=== PATIENT | male | born 1990 | race Caucasian/White ===

== ENCOUNTER 2017-06-27 19:32 | Emergency (ER) | payer OTHER ==
[2017-06-27] MEDS ORDERED: ONDANSETRON 4 MG/2 ML VIAL IVP STA (20:06)
[2017-06-27] MEDS ORDERED: MAG HYDROX/AL HYDROX/SIMETH 30 ML, HYOSCYAMINE ELIXIR 10 ML, CIMETIDINE HCL 300 MG PO STA ×3 (20:06)
[2017-06-27] MEDS ORDERED: SODIUM CHLORIDE 0.9% 1,000 ML IV STA (20:06)
--- NOTE | 2017-06-27 20:23 | ED ---
Abdominal Pain HPI - General Chief Complaint: Abdominal Pain Stated Complaint: Abd pain Time Seen by Provider: 06/27/17 19:59 Source: patient, RN notes reviewed Mode of arrival: ambulatory Limitations: no limitations - History of Present Illness Initial Comments: This a 26-year-old male presents emergency Department chief complaint of abdominal pain. Patient had increased abdominal pain over the last month. Patient states he does have associated nausea and heartburn. Patient denies any diarrhea or constipation. Patient does admit to alcohol abuse and drug abuse history. Patient denies any chest pain or shortness breath this time. Patient states pain is worse when he lays down and pain does radiate to his back. Patient denies any lower extremity swelling denies any skin changes including dryness or color. - Related Data Previous Rx's Medication Instructions Recorded Ondansetron Odt [Zofran Odt] 4 mg PO Q8HR PRN #10 tab 06/27/17 RX: Omeprazole [PriLOSEC] 40 mg PO DAILY #14 capsule. 06/27/17 Allergies Allergy/AdvReac Type Severity Reaction Status Date / Time No Known Allergies Allergy Verified 06/27/17 19:53 Review of Systems ROS Statement: Those systems with pertinent positive or pertinent negative responses have been documented in the HPI. ROS Other: All systems not noted in ROS Statement are negative. Past Medical History Past Medical History: No Reported History History of Any Multi-Drug Resistant Organisms: None Reported Past Surgical History: No Surgical Hx Reported Past Psychological History: No Psychological Hx Reported Smoking Status: Current every day smoker Past Alcohol Use History: Occasional Past Drug Use History: Marijuana, Prescription Drug Abuse General Exam Limitations: no limitations General appearance: alert, in no apparent distress Neck exam: Present: normal inspection. Absent: tenderness, meningismus, lymphadenopathy Respiratory exam: Present: normal lung sounds bilaterally. Absent: respiratory distress, wheezes, rales, rhonchi, stridor Cardiovascular Exam: Present: normal rhythm, tachycardia, normal heart sounds. Absent: systolic murmur, diastolic murmur, rubs, gallop, clicks GI/Abdominal exam: Present: soft, tenderness (Moderate abdominal tenderness), normal bowel sounds. Absent: distended, guarding, rebound, rigid Back exam: Absent: CVA tenderness (R), CVA tenderness (L) Skin exam: Present: warm, dry, intact, normal color. Absent: rash Course Vital Signs 06/27/17 06/27/17 06/27/17 19:51 20:26 21:12 Temperature 98.9 F Pulse Rate 126 H 118 H 77 Respiratory 20 18 18 Rate Blood Pressure 135/77 139/84 125/72 O2 Sat by Pulse 99 96 96 Oximetry 06/27/17 06/27/17 06/27/17 21:44 22:45 23:00 Temperature 98 F Pulse Rate 102 H 77 Respiratory 18 18 Rate Blood Pressure 126/75 117/71 O2 Sat by Pulse 96 96 Oximetry Medical Decision Making - Medical Decision Making 26-year-old male present emergency from for abdominal pain. Patient son have a thick gallbladder wall with no children to cholecystitis. Patient does have GERD and it mostly gastritis. Patient will be given omeprazole 40 mg and follow with on-call surgery for his gallbladder. - Lab Data Result diagrams: 06/27/17 20:24 06/27/17 20:24 Lab Results 06/27/17 06/27/17 06/27/17 Range/Units 20:24 20:24 20:24 WBC 12.3 H (3.8-10.6) k/uL RBC 5.11 (4.30-5.90) m/uL Hgb 16.6 (13.0-17.5) gm/dL Hct 46.3 (39.0-53.0) % MCV 90.7 (80.0-100.0) fL MCH 32.5 (25.0-35.0) pg MCHC 35.8 (31.0-37.0) g/dL RDW 14.3 (11.5-15.5) % Plt Count 233 (150-450) k/uL Neutrophils % 76 % Lymphocytes % 17 % Monocytes % 5 % Eosinophils % 1 % Basophils % 0 % Neutrophils # 9.3 H (1.3-7.7) k/uL Lymphocytes # 2.1 (1.0-4.8) k/uL Monocytes # 0.6 (0-1.0) k/uL Eosinophils # 0.2 (0-0.7) k/uL Basophils # 0.1 (0-0.2) k/uL PT (9.0-12.0) sec INR (<1.2) APTT (22.0-30.0) sec Sodium 139 (137-145) mmol/L Potassium 4.1 (3.5-5.1) mmol/L Chloride 108 H (98-107) mmol/L Carbon Dioxide 22 (22-30) mmol/L Anion Gap 9 mmol/L BUN 11 (9-20) mg/dL Creatinine 1.07 (0.66-1.25) mg/dL Est GFR (MDRD) Af Amer >60 (>60 ml/min/1.73 sqM) Est GFR (MDRD) Non-Af >60 (>60 ml/min/1.73 sqM) Glucose 104 H (74-99) mg/dL Plasma Lactic Acid Karthik 1.7 (0.7-2.0) mmol/L Calcium 8.7 (8.4-10.2) mg/dL Total Bilirubin 0.5 (0.2-1.3) mg/dL AST 44 (17-59) U/L ALT 77 H (21-72) U/L Alkaline Phosphatase 82 (38-126) U/L Total Protein 5.9 L (6.3-8.2) g/dL Albumin 3.6 (3.5-5.0) g/dL Amylase <30 L (30-110) U/L Lipase 30 (23-300) U/L Urine Color Urine Appearance (Clear) Urine pH (5.0-8.0) Ur Specific [place] (1.001-1.035) Urine Protein (Negative) Urine Glucose (UA) (Negative) Urine Ketones (Negative) Urine Blood (Negative) Urine Nitrite (Negative) Urine Bilirubin (Negative) Urine Urobilinogen (<2.0) mg/dL Ur Leukocyte Esterase (Negative) 06/27/17 06/27/17 Range/Units 20:24 20:24 WBC (3.8-10.6) k/uL RBC (4.30-5.90) m/uL Hgb (13.0-17.5) gm/dL Hct (39.0-53.0) % MCV (80.0-100.0) fL MCH (25.0-35.0) pg MCHC (31.0-37.0) g/dL RDW (11.5-15.5) % Plt Count (150-450) k/uL Neutrophils % % Lymphocytes % % Monocytes % % Eosinophils % % Basophils % % Neutrophils # (1.3-7.7) k/uL Lymphocytes # (1.0-4.8) k/uL Monocytes # (0-1.0) k/uL Eosinophils # (0-0.7) k/uL Basophils # (0-0.2) k/uL PT 10.8 (9.0-12.0) sec INR 1.1 (<1.2) APTT 22.2 (22.0-30.0) sec Sodium (137-145) mmol/L Potassium (3.5-5.1) mmol/L Chloride (98-107) mmol/L Carbon Dioxide (22-30) mmol/L Anion Gap mmol/L BUN (9-20) mg/dL Creatinine (0.66-1.25) mg/dL Est GFR (MDRD) Af Amer (>60 ml/min/1.73 sqM) Est GFR (MDRD) Non-Af (>60 ml/min/1.73 sqM) Glucose (74-99) mg/dL Plasma Lactic Acid Karthik (0.7-2.0) mmol/L Calcium (8.4-10.2) mg/dL Total Bilirubin (0.2-1.3) mg/dL AST (17-59) U/L ALT (21-72) U/L Alkaline Phosphatase (38-126) U/L Total Protein (6.3-8.2) g/dL Albumin (3.5-5.0) g/dL Amylase (30-110) U/L Lipase (23-300) U/L Urine Color Yellow Urine Appearance Clear (Clear) Urine pH 6.0 (5.0-8.0) Ur Specific [place] 1.015 (1.001-1.035) Urine Protein Trace H (Negative) Urine Glucose (UA) Negative (Negative) Urine Ketones Negative (Negative) Urine Blood Negative (Negative) Urine Nitrite Negative (Negative) Urine Bilirubin Negative (Negative) Urine Urobilinogen <2.0 (<2.0) mg/dL Ur Leukocyte Esterase Negative (Negative) Disposition Clinical Impression: Thickening of wall of gallbladder, GERD (gastroesophageal reflux disease), Abdominal pain Disposition: HOME SELF-CARE Condition: Stable Instructions: Abdominal Pain (ED) Additional Instructions: Please return to the Emergency Department if symptoms worsen or any other concerns. Prescriptions: RX: Omeprazole [PriLOSEC] 40 mg PO DAILY #14 capsule. Ondansetron Odt [Zofran Odt] 4 mg PO Q8HR PRN #10 tab PRN Reason: Nausea Referrals: Marlon Jain MD [Primary Care Provider] - 1-2 days Thu Voss MD [STAFF PHYSICIAN] - 1-2 days Time of Disposition: 23:17
[2017-06-27 20:27] VITALS: RESP 18
[2017-06-27 20:35] LABS: Appearance,Urine Clear (Clear); Basophils # (A) 0.1 k/uL (0-0.2); Basophils % (A) 0 %; Bilirubin,Urine Negative (Negative); CH 30.6; Eosinophils # (A) 0.2 k/uL (0-0.7); Eosinophils % (A) 1 %; Glucose,Urine (UA) Negative (Negative); HCT 46.3 % (39.0-53.0); HDW 2.83; HGB 16.6 gm/dL (13.0-17.5); Ketones,Urine Negative (Negative); Leukocyte Esterase,Urine Negative (Negative); Luc # (Auto) 0.16; Luc % (Auto) 1; Lymphocytes # (A) 2.1 k/uL (1.0-4.8); Lymphocytes % (A) 17 %; MCH 32.5 pg (25.0-35.0); MCHC 35.8 g/dL (31.0-37.0); MCV 90.7 fL (80.0-100.0); Mean Platelet Volume 7.9; Monocytes # (A) 0.6 k/uL (0-1.0); Monocytes % (A) 5 %; Neutrophils # (A) 9.3 k/uL (1.3-7.7); Neutrophils % (A) 76 %; Nitrite,Urine Negative (Negative); Protein,Urine Trace (Negative); RBC 5.11 m/uL (4.30-5.90); RDW 14.3 % (11.5-15.5); Specific Gravity,Urine 1.015 (1.001-1.035); UA Billing (MACRO vs. MICRO) CHEM; Urobilinogen,Urine <2.0 mg/dL (<2.0); WBC 12.3 k/uL (3.8-10.6); WBC (Perox) 11.95
--- NOTE | 2017-06-27 20:40 | XR ---
EXAMINATION TYPE: XR KUB DATE OF EXAM: 06/27/2017 COMPARISON: NONE HISTORY: Abdominal pain TECHNIQUE: 2 views FINDINGS: There is no sign of intestinal obstruction or pneumoperitoneum. Fecal pattern is normal. Th ere is no evidence of a mass. There are no pathologic calcifications over the kidneys. IMPRESSION: Nonacute abdomen.
[2017-06-27 20:46] LABS: ALT 77 U/L (21-72); AST 44 U/L (17-59); Alkaline Phosphatase 82 U/L (38-126); Amylase <30 U/L (30-110); Anion Gap 9 mmol/L; Blood Urea Nitrogen 11 mg/dL (9-20); Calcium 8.7 mg/dL (8.4-10.2); Carbon Dioxide 22 mmol/L (22-30); Chloride 108 mmol/L (98-107); Glucose 104 mg/dL (74-99); Non-African American GFR(MDRD) >60 (>60 ml/min/1.73 sqM); Potassium 4.1 mmol/L (3.5-5.1); Sodium 139 mmol/L (137-145); Total Bilirubin 0.5 mg/dL (0.2-1.3); Total Protein 5.9 g/dL (6.3-8.2)
[2017-06-27] MEDS ORDERED: RX INFO: IV CONTRAST WAS GIVEN 1 EACH MISC MISCELLANE PRN (20:51)
[2017-06-27] MEDS ORDERED: KETOROLAC 30 MG/ML 1 ML VIAL IVP STA (20:58)
--- NOTE | 2017-06-27 21:23 | CT ---
EXAMINATION TYPE: CT abdomen pelvis w con DATE OF EXAM: 06/27/2017 COMPARISON: NONE HISTORY: Generalized abdominal pain and nausea x [address] DLP: 493.40 mGycm Automated exposure control for dose reduction was used. TECHNIQUE: Helical acquisition of images was performed from the lung bases through the pelvis. CONTRAST: Performed without Oral Contrast and with IV Contrast, patient injected with 100 mL of Omnipaque 300. FINDINGS: There is a small right pleural effusion. There is mild subsegmental atelectasis at the lung bases. Th ere is small left pleural effusion. Liver shows no focal defect. There is significant gallbladder wall thickening with decreased attenuat ion. This measures 12 to 14 mm.. Bile ducts are not dilated. There is no evidence of a pancreatic mas s. Spleen appears normal. There is no adrenal mass. Kidneys show satisfactory contrast opacification. There is no hydronephrosi s. There is no retroperitoneal adenopathy. There is no ascites. Bladder distends smoothly. There is no sign of a pelvic mass. I see no intestina l wall thickening. There are no dilated loops. The appendix appears normal. I see no bony destructive process. IMPRESSION: Abnormal appearing gallbladder that probably is due to edematous thick wall and cholecyst itis. Ultrasound would be helpful for confirmation. Normal appendix. Bilateral pleural effusions and basilar interstitial infiltrates and atelectasis.
[2017-06-27] MEDS ORDERED: HYDROmorphone 1 MG/ML 1 ML SYRINGE IVP STA (21:39)
[2017-06-27 22:46] VITALS: BP 117/71; PULSE 77
[2017-06-27 23:01] VITALS: TEMP 98
[2017-06-27 23:05] LABS: INR 1.1 (<1.2); Partial Thromboplastin Time 22.2 sec (22.0-30.0); Prothrombin Time 10.8 sec (9.0-12.0)
--- NOTE | 2017-06-27 23:07 | US ---
INDICATION: Right upper quadrant abdominal pain TECHNIQUE: Real-time imaging of the right upper quadrant of the abdomen is performed in transverse and longitudinal projections. COMPARISON: CT abdomen and pelvis 06/27/17 FINDINGS: The liver is enlarged measuring 19.9 cm. There is no biliary dilatation. No focal hepatic lesion is visualized. Liver parenchyma is mildly echogenic. There is marked gallbladder wall thickening measuring 10 mm. No cholelithiasis or gallbladder sludge is demonstrated. Sonographic Dma[place] sign is negative. Common bile duct is normal in caliber measuring 3.9 mm. The right kidney is normal in size measuring 10.5 cm in length. There is no hydronephrosis. No ascites is demonstrated. IMPRESSION: 1. Hepatomegaly with echogenic parenchyma, a nonspecific finding which may represent hepatocellular disease such as hepatitis or steatosis. 2. Pronounced gallbladder wall thickening without sonographic findings of acute cholecystitis. Gallbladder wall thickening may be secondary to hepatocellular, cardiac, or other disease process.
== END 2017-06-27 23:33 | disposition home or self-care (01) ==
LOC: EC 19:32
DX: K21.9 Gastro-esophageal reflux disease without esophagitis (principal); K82.8 Other specified diseases of gallbladder; R00.0 Tachycardia, unspecified; R11.0 Nausea; M54.9 Dorsalgia, unspecified; F17.200 Nicotine dependence, unspecified, uncomplicated; Z87.898 Personal history of other specified conditions
CPT/HCPCS: 36415; 80053; 82150; 83605; 83690; 85025; 85610; 85730; 81003; 74000; 76705; 74177; 99284; 96374; 96375 ×2; 96361; J2405; J1885; J1170; Q9967

== ENCOUNTER 2017-06-28 21:04 | Inpatient (IN) | payer OTHER ==
[2017-06-28] MEDS ORDERED: SODIUM CHLORIDE 0.9% 1,000 ML IV STA (21:09)
[2017-06-28] MEDS ORDERED: ONDANSETRON 4 MG/2 ML VIAL IVP STA (21:09)
[2017-06-28] MEDS ORDERED: HYDROmorphone 1 MG/ML 1 ML SYRINGE IVP STA (21:09)
[2017-06-28] MEDS ORDERED: SODIUM CHLORIDE 0.9% 500 ML IV STA (21:09)
--- NOTE | 2017-06-28 22:04 | ED ---
Abdominal Pain HPI - General Chief Complaint: Abdominal Pain Stated Complaint: Abd pain Time Seen by Provider: 06/28/17 21:09 Source: patient, RN notes reviewed Mode of arrival: ambulatory Limitations: no limitations - History of Present Illness Initial Comments: 26-year-old male presents emergency department for recheck abdominal pain. Patient states he was seen in emergency from last night was told that his gallbladder injury causing some issues. Patient states that he's had worsening nausea and abdominal discomfort today. He states that since right upper quadrant and mid abdomen. Patient denies any vomiting no diarrhea no constipation. Denies any fevers or chills. Denies any chest pain or shortness of breath. States nothing seems to make the pain feel better or worse at this time. - Related Data Previous Rx's Medication Instructions Recorded Omeprazole [PriLOSEC] 40 mg PO DAILY #14 capsule. 06/27/17 Ondansetron Odt [Zofran Odt] 4 mg PO Q8HR PRN #10 tab 06/27/17 Allergies Allergy/AdvReac Type Severity Reaction Status Date / Time No Known Allergies Allergy Verified 06/28/17 21:22 Review of Systems ROS Statement: Those systems with pertinent positive or pertinent negative responses have been documented in the HPI. ROS Other: All systems not noted in ROS Statement are negative. Past Medical History Past Medical History: No Reported History History of Any Multi-Drug Resistant Organisms: None Reported Past Surgical History: No Surgical Hx Reported Past Psychological History: No Psychological Hx Reported Smoking Status: Current every day smoker Past Alcohol Use History: Occasional Past Drug Use History: Marijuana, Prescription Drug Abuse General Exam Limitations: no limitations General appearance: alert, in no apparent distress Head exam: Present: atraumatic, normocephalic, normal inspection ENT exam: Present: normal oropharynx Neck exam: Present: normal inspection. Absent: tenderness, meningismus, lymphadenopathy Respiratory exam: Present: normal lung sounds bilaterally. Absent: respiratory distress, wheezes, rales, rhonchi, stridor Cardiovascular Exam: Present: normal rhythm, tachycardia, normal heart sounds. Absent: systolic murmur, diastolic murmur, rubs, gallop, clicks GI/Abdominal exam: Present: soft, tenderness (Moderate right upper quadrant tenderness, mid abdomen tenderness), normal bowel sounds. Absent: distended, guarding, rebound, rigid Back exam: Absent: CVA tenderness (R), CVA tenderness (L) Skin exam: Present: warm, dry, intact, normal color. Absent: rash Course Vital Signs 06/28/17 06/28/17 21:06 22:23 Temperature 97 F L 97.6 F Pulse Rate 122 H 110 H Respiratory 20 18 Rate Blood Pressure 122/79 129/73 O2 Sat by Pulse 98 99 Oximetry Medical Decision Making - Lab Data Result diagrams: 06/28/17 21:34 06/28/17 21:34 Lab Results 06/28/17 06/28/17 06/28/17 Range/Units 21:34 21:34 21:34 WBC 11.8 H (3.8-10.6) k/uL RBC 5.46 (4.30-5.90) m/uL Hgb 17.5 (13.0-17.5) gm/dL Hct 51.3 (39.0-53.0) % MCV 93.8 (80.0-100.0) fL MCH 32.0 (25.0-35.0) pg MCHC 34.1 (31.0-37.0) g/dL RDW 14.5 (11.5-15.5) % Plt Count 238 (150-450) k/uL Neutrophils % 65 % Lymphocytes % 25 % Monocytes % 7 % Eosinophils % 1 % Basophils % 1 % Neutrophils # 7.7 (1.3-7.7) k/uL Lymphocytes # 2.9 (1.0-4.8) k/uL Monocytes # 0.8 (0-1.0) k/uL Eosinophils # 0.2 (0-0.7) k/uL Basophils # 0.1 (0-0.2) k/uL Sodium 135 L (137-145) mmol/L Potassium 4.7 (3.5-5.1) mmol/L Chloride 107 (98-107) mmol/L Carbon Dioxide 19 L (22-30) mmol/L Anion Gap 9 mmol/L BUN 13 (9-20) mg/dL Creatinine 1.20 (0.66-1.25) mg/dL Est GFR (MDRD) Af Amer >60 (>60 ml/min/1.73 sqM) Est GFR (MDRD) Non-Af >60 (>60 ml/min/1.73 sqM) Glucose 125 H (74-99) mg/dL Plasma Lactic Acid Karthik 2.4 H* (0.7-2.0) mmol/L Calcium 8.8 (8.4-10.2) mg/dL Magnesium 1.9 (1.6-2.3) mg/dL Total Bilirubin 1.8 H (0.2-1.3) mg/dL AST 258 H (17-59) U/L ALT 230 H (21-72) U/L Alkaline Phosphatase 86 (38-126) U/L Total Protein 5.9 L (6.3-8.2) g/dL Albumin 3.5 (3.5-5.0) g/dL Amylase <30 L (30-110) U/L Lipase 23 (23-300) U/L Urine Color Urine Appearance (Clear) Urine pH (5.0-8.0) Ur Specific [place] (1.001-1.035) Urine Protein (Negative) Urine Glucose (UA) (Negative) Urine Ketones (Negative) Urine Blood (Negative) Urine Nitrite (Negative) Urine Bilirubin (Negative) Urine Urobilinogen (<2.0) mg/dL Ur Leukocyte Esterase (Negative) Urine RBC (0-5) /hpf Urine WBC (0-5) /hpf Hyaline Casts (0-2) /lpf Urine Mucus (None) /hpf 06/28/17 Range/Units 21:34 WBC (3.8-10.6) k/uL RBC (4.30-5.90) m/uL Hgb (13.0-17.5) gm/dL Hct (39.0-53.0) % MCV (80.0-100.0) fL MCH (25.0-35.0) pg MCHC (31.0-37.0) g/dL RDW (11.5-15.5) % Plt Count (150-450) k/uL Neutrophils % % Lymphocytes % % Monocytes % % Eosinophils % % Basophils % % Neutrophils # (1.3-7.7) k/uL Lymphocytes # (1.0-4.8) k/uL Monocytes # (0-1.0) k/uL Eosinophils # (0-0.7) k/uL Basophils # (0-0.2) k/uL Sodium (137-145) mmol/L Potassium (3.5-5.1) mmol/L Chloride (98-107) mmol/L Carbon Dioxide (22-30) mmol/L Anion Gap mmol/L BUN (9-20) mg/dL Creatinine (0.66-1.25) mg/dL Est GFR (MDRD) Af Amer (>60 ml/min/1.73 sqM) Est GFR (MDRD) Non-Af (>60 ml/min/1.73 sqM) Glucose (74-99) mg/dL Plasma Lactic Acid Karthik (0.7-2.0) mmol/L Calcium (8.4-10.2) mg/dL Magnesium (1.6-2.3) mg/dL Total Bilirubin (0.2-1.3) mg/dL AST (17-59) U/L ALT (21-72) U/L Alkaline Phosphatase (38-126) U/L Total Protein (6.3-8.2) g/dL Albumin (3.5-5.0) g/dL Amylase (30-110) U/L Lipase (23-300) U/L Urine Color Yellow Urine Appearance Clear (Clear) Urine pH 6.0 (5.0-8.0) Ur Specific [place] 1.022 (1.001-1.035) Urine Protein 1+ H (Negative) Urine Glucose (UA) Negative (Negative) Urine Ketones Negative (Negative) Urine Blood Negative (Negative) Urine Nitrite Negative (Negative) Urine Bilirubin 1+ H (Negative) Urine Urobilinogen 3.0 (<2.0) mg/dL Ur Leukocyte Esterase Negative (Negative) Urine RBC 1 (0-5) /hpf Urine WBC 1 (0-5) /hpf Hyaline Casts 47 H (0-2) /lpf Urine Mucus Rare H (None) /hpf Disposition Clinical Impression: Acute cholecystitis Disposition: ADMITTED IP TO THIS HOSP Condition: Fair Referrals: Marlon Jain MD [Primary Care Provider] - 1-2 days
[2017-06-28 22:05] LABS: Basophils # (A) 0.1 k/uL (0-0.2); Basophils % (A) 1 %; CH 30.8; Eosinophils # (A) 0.2 k/uL (0-0.7); Eosinophils % (A) 1 %; HCT 51.3 % (39.0-53.0); HDW 2.87; HGB 17.5 gm/dL (13.0-17.5); Luc % (Auto) 2; Lymphocytes # (A) 2.9 k/uL (1.0-4.8); Lymphocytes % (A) 25 %; MCHC 34.1 g/dL (31.0-37.0); MCV 93.8 fL (80.0-100.0); Mean Platelet Volume 8.3; Monocytes # (A) 0.8 k/uL (0-1.0); Monocytes % (A) 7 %; Neutrophils # (A) 7.7 k/uL (1.3-7.7); Neutrophils % (A) 65 %; RBC 5.46 m/uL (4.30-5.90); RDW 14.5 % (11.5-15.5); WBC 11.8 k/uL (3.8-10.6); WBC (Perox) 11.04
[2017-06-28 22:11] LABS: ALT 230 U/L (21-72); AST 258 U/L (17-59); Alkaline Phosphatase 86 U/L (38-126); Amylase <30 U/L (30-110); Anion Gap 9 mmol/L; Appearance,Urine Clear (Clear); Bilirubin,Urine 1+ (Negative); Blood Urea Nitrogen 13 mg/dL (9-20); Calcium 8.8 mg/dL (8.4-10.2); Carbon Dioxide 19 mmol/L (22-30); Chloride 107 mmol/L (98-107); Glucose 125 mg/dL (74-99); Glucose,Urine (UA) Negative (Negative); Ketones,Urine Negative (Negative); Leukocyte Esterase,Urine Negative (Negative); Magnesium 1.9 mg/dL (1.6-2.3); Mucus,Urine Rare /hpf; Nitrite,Urine Negative (Negative); Non-African American GFR(MDRD) >60 (>60 ml/min/1.73 sqM); Particle Count 7010; Potassium 4.7 mmol/L (3.5-5.1); Protein,Urine 1+ (Negative); RBC,Urine 1 /hpf (0-5); Sodium 135 mmol/L (137-145); Specific Gravity,Urine 1.022 (1.001-1.035); Total Bilirubin 1.8 mg/dL (0.2-1.3); Total Protein 5.9 g/dL (6.3-8.2); UA Billing (MACRO vs. MICRO) MICRO; WBC,Urine 1 /hpf (0-5)
[2017-06-28] MEDS ORDERED: PIPERACILLIN-TAZOBACTAM 3.375 GM in DEXTROSE/WATER 1 50ML.BAG IVPB STA (22:29)
[2017-06-28] MEDS ORDERED: SODIUM CHLORIDE 0.9% 1,000 ML IV ONE (22:29)
[2017-06-28] MEDS ORDERED: NALOXONE 0.4 MG/ML 1 ML VIAL IV PRN (22:31)
[2017-06-28] MEDS ORDERED: ONDANSETRON 4 MG/2 ML VIAL IVP PRN (22:31)
[2017-06-29 00:02] VITALS: BMI 26.2
[2017-06-29] MEDS: HYDROmorphone 1 MG/ML 1 ML SYRINGE IV PRN ×5 (00:20→22:27)
[2017-06-29 02:37] LABS: Hepatitis B Surface Ag Index 0.05
[2017-06-29 02:43] LABS: Hepatitis B Core IgM Index 0.03
[2017-06-29 02:55] LABS: Hepatitis C Virus IgG Ab Negative (Negative); Hepatitis C Virus IgG Index 0.02
[2017-06-29] MEDS: PIPERACILLIN-TAZOBACTAM 3.375 GM in DEXTROSE/WATER 1 50ML.BAG IVPB SCH ×2 (03:12→08:46)
[2017-06-29 08:20] LABS: Basophils # (A) 0.1 k/uL (0-0.2); Basophils % (A) 1 %; CH 31.7; CHCM 33.5; Eosinophils # (A) 0.1 k/uL (0-0.7); Eosinophils % (A) 1 %; HCT 46.8 % (39.0-53.0); HDW 2.89; HGB 15.4 gm/dL (13.0-17.5); Luc # (Auto) 0.18; Luc % (Auto) 2; Lymphocytes # (A) 1.9 k/uL (1.0-4.8); Lymphocytes % (A) 18 %; MCH 31.4 pg (25.0-35.0); MCV 95.4 fL (80.0-100.0); Mean Platelet Volume 8.7; Monocytes # (A) 1.1 k/uL (0-1.0); Monocytes % (A) 11 %; Neutrophils # (A) 6.8 k/uL (1.3-7.7); Neutrophils % (A) 67 %; RBC 4.91 m/uL (4.30-5.90); WBC 10.2 k/uL (3.8-10.6); WBC (Perox) 10.49
[2017-06-29 08:28] LABS: ALT 805 U/L (21-72); Alkaline Phosphatase 77 U/L (38-126); Amylase <30 U/L (30-110); Anion Gap 6 mmol/L; Bilirubin, Delta 0.4 mg/dL (0.0-0.2); Blood Urea Nitrogen 13 mg/dL (9-20); Calcium 8.2 mg/dL (8.4-10.2); Carbon Dioxide 22 mmol/L (22-30); Chloride 109 mmol/L (98-107); GGT 38 U/L (15-73); Glucose 82 mg/dL (74-99); Non-African American GFR(MDRD) >60 (>60 ml/min/1.73 sqM); Potassium 4.2 mmol/L (3.5-5.1); Sodium 137 mmol/L (137-145); Total Bilirubin 1.4 mg/dL (0.2-1.3); Total Protein 5.2 g/dL (6.3-8.2)
[2017-06-29 08:34] LABS: AST 1131 U/L (17-59); INR 1.3 (<1.2); Prothrombin Time 12.7 sec (9.0-12.0)
[2017-06-29 09:02] LABS: Manual Review Performed
[2017-06-29 09:03] LABS: RBC Morphology Normal
--- NOTE | 2017-06-29 09:36 | P.GSCN ---
<Berna Chapin M - Last Filed: 06/29/17 09:13> History of Present Illness Consult date: 06/29/17 Reason for Consult: Abdominal pain History of present illness: 26-year-old being seen at the request of the attending for surgical eval was chief complaint right upper quadrant abdominal pain. Patient stated that he was seen in the emergency room on June 27 was told that his gallbladder was causing some issues. Patient stated that over the last 6 weeks he has been experiencing intermittent episodes of nausea with right upper quadrant pain. Seem to be aggravated if he drink alcohol. Additionally patient stated if he bent over it seemed to increase the pain. Patient denied any fever chills. Denied chest pain denying shortness of breath. Patient states he did not note anything seemed to make it better. Patient states was given a prescription on June 27 for Zofran and Prilosec which patient states did not offer any relief. Patient gives no significant past surgical history patient does state that he drinks beer a couple times a week. Smokes marijuana and has a history of prescription drug abuse Vicodin.. Patient gives a history of mother had colitis father has a history of Crohn's disease. Patient stated several years ago was working in [facility] when to the emergency room was told that he needed to follow-up regarding possible Crohn's disease. Patient has poor recall of the event. Patient states he's never been seen by a GI service has never been given the diagnosis of Crohn's disease. Additionally patient is a history of being hospitalized on 2014 to the mental health unit for suicidal ideation anxiety depressive disorder On June 27 patient did have a CAT scan of the abdomen pelvis with contrast in summary reviewing the report it did show significant gallbladder wall thickening no evidence of a pancreatic mass bile ducts not dilated no ascites.With a normal appendix the white count on admission 11.8 hemoglobin 17.5 INR 1.3 The AST this morning elevated at 1131 on admission 258. Total bili 1. 2 ALT up 805 lipase 23 hepatitis panel negative. Urinalysis negative KUB negative ultrasound of the abdomen to evaluate the right upper quadrant pain done on the pronounced gallbladder wall thickening without findings of an acute cholecystitis no sludge demonstrated Review of Systems Essentially unremarkable except as mentioned in the present illness Past Medical History Past Medical History: No Reported History History of Any Multi-Drug Resistant Organisms: None Reported Past Surgical History: No Surgical Hx Reported Past Psychological History: No Psychological Hx Reported Smoking Status: Current every day smoker Past Alcohol Use History: Occasional Past Drug Use History: Marijuana, Prescription Drug Abuse Additional Drug Use History / Comment(s): Opiates and Benzo's Medications and Allergies Home Medications Medication Instructions Recorded Confirmed Type Omeprazole [PriLOSEC] 40 mg PO DAILY #14 capsule. 06/27/17 06/28/17 Rx Ondansetron Odt [Zofran Odt] 4 mg PO Q8HR PRN #10 tab 06/27/17 06/28/17 Rx Allergies Allergy/AdvReac Type Severity Reaction Status Date / Time No Known Allergies Allergy Verified 06/28/17 21:22 Surgical - Exam Vital Signs Temp Pulse Resp BP Pulse Ox 97 F L 122 H 20 122/79 98 06/28/17 21:06 06/28/17 21:06 06/28/17 21:06 06/28/17 21:06 06/28/17 21:06 GENERAL APPEARANCE: 26-year-old male patient is alert, oriented, in no acute distress. States the pain medication effective for pain control VITAL SIGNS: Reviewed HEENT: Head is normocephalic and atraumatic. Pupils are equal and reactive. The nares are patent. Oropharynx is clear without lesions. NECK: Supple without lymphadenopathy. Traches midline. HEART: S1, S2. Regular rate and rhythm. Denying chest pain no murmur LUNGS: No crackles or wheezes are heard. Good air movement bilaterally on room air ABDOMEN: Soft, slight tenderness right upper quadrant no reports of nausea vomiting nondistended with good bowel sounds. No peritoneal signs. No palpable organomegaly or masses. EXTREMITIES: Normal skin color and turgor. No cyanosis, rash, ulceration, clubbing or edema. Radial pedal pulses are 2/4 bilaterally. NEUROLOGICAL: No focal deficits. Strength and sensation are grossly intact. Results - Labs 06/29/17 08:08 06/29/17 08:08 Abnormal Lab Results - Last 24 Hours (Table) 06/28/17 06/28/17 06/28/17 Range/Units 21:34 21:34 21:34 WBC 11.8 H (3.8-10.6) k/uL Monocytes # (0-1.0) k/uL PT (9.0-12.0) sec INR (<1.2) Sodium 135 L (137-145) mmol/L Chloride (98-107) mmol/L Carbon Dioxide 19 L (22-30) mmol/L Creatinine (0.66-1.25) mg/dL Glucose 125 H (74-99) mg/dL Plasma Lactic Acid Karthik 2.4 H* (0.7-2.0) mmol/L Calcium (8.4-10.2) mg/dL Total Bilirubin 1.8 H (0.2-1.3) mg/dL Delta Bilirubin (0.0-0.2) mg/dL AST 258 H (17-59) U/L ALT 230 H (21-72) U/L Total Protein 5.9 L (6.3-8.2) g/dL Albumin (3.5-5.0) g/dL Amylase <30 L (30-110) U/L Urine Protein (Negative) Urine Bilirubin (Negative) Hyaline Casts (0-2) /lpf Urine Mucus (None) /hpf 06/28/17 06/29/17 06/29/17 Range/Units 21:34 08:08 08:08 WBC (3.8-10.6) k/uL Monocytes # 1.1 H (0-1.0) k/uL PT (9.0-12.0) sec INR (<1.2) Sodium (137-145) mmol/L Chloride 109 H (98-107) mmol/L Carbon Dioxide (22-30) mmol/L Creatinine 1.34 H (0.66-1.25) mg/dL Glucose (74-99) mg/dL Plasma Lactic Acid Karthik (0.7-2.0) mmol/L Calcium 8.2 L (8.4-10.2) mg/dL Total Bilirubin 1.4 H (0.2-1.3) mg/dL Delta Bilirubin 0.4 H (0.0-0.2) mg/dL AST 1131 H (17-59) U/L ALT 805 H (21-72) U/L Total Protein 5.2 L (6.3-8.2) g/dL Albumin 3.0 L (3.5-5.0) g/dL Amylase <30 L (30-110) U/L Urine Protein 1+ H (Negative) Urine Bilirubin 1+ H (Negative) Hyaline Casts 47 H (0-2) /lpf Urine Mucus Rare H (None) /hpf 06/29/17 Range/Units 08:08 WBC (3.8-10.6) k/uL Monocytes # (0-1.0) k/uL PT 12.7 H (9.0-12.0) sec INR 1.3 H (<1.2) Sodium (137-145) mmol/L Chloride (98-107) mmol/L Carbon Dioxide (22-30) mmol/L Creatinine (0.66-1.25) mg/dL Glucose (74-99) mg/dL Plasma Lactic Acid Karthik (0.7-2.0) mmol/L Calcium (8.4-10.2) mg/dL Total Bilirubin (0.2-1.3) mg/dL Delta Bilirubin (0.0-0.2) mg/dL AST (17-59) U/L ALT (21-72) U/L Total Protein (6.3-8.2) g/dL Albumin (3.5-5.0) g/dL Amylase (30-110) U/L Urine Protein (Negative) Urine Bilirubin (Negative) Hyaline Casts (0-2) /lpf Urine Mucus (None) /hpf Diabetes panel 06/28/17 06/29/17 Range/Units 21:34 08:08 Sodium 135 L 137 (137-145) mmol/L Potassium 4.7 4.2 (3.5-5.1) mmol/L Chloride 107 109 H (98-107) mmol/L Carbon Dioxide 19 L 22 (22-30) mmol/L BUN 13 13 (9-20) mg/dL Creatinine 1.20 1.34 H (0.66-1.25) mg/dL Glucose 125 H 82 (74-99) mg/dL Calcium 8.8 8.2 L (8.4-10.2) mg/dL AST 258 H 1131 H (17-59) U/L ALT 230 H 805 H (21-72) U/L Alkaline Phosphatase 86 77 (38-126) U/L Total Protein 5.9 L 5.2 L (6.3-8.2) g/dL Albumin 3.5 3.0 L (3.5-5.0) g/dL Calcium panel 06/28/17 06/29/17 Range/Units 21:34 08:08 Calcium 8.8 8.2 L (8.4-10.2) mg/dL Albumin 3.5 3.0 L (3.5-5.0) g/dL Pituitary panel 06/28/17 06/29/17 Range/Units 21:34 08:08 Sodium 135 L 137 (137-145) mmol/L Potassium 4.7 4.2 (3.5-5.1) mmol/L Chloride 107 109 H (98-107) mmol/L Carbon Dioxide 19 L 22 (22-30) mmol/L BUN 13 13 (9-20) mg/dL Creatinine 1.20 1.34 H (0.66-1.25) mg/dL Glucose 125 H 82 (74-99) mg/dL Calcium 8.8 8.2 L (8.4-10.2) mg/dL Adrenal panel 06/28/17 06/29/17 Range/Units 21:34 08:08 Sodium 135 L 137 (137-145) mmol/L Potassium 4.7 4.2 (3.5-5.1) mmol/L Chloride 107 109 H (98-107) mmol/L Carbon Dioxide 19 L 22 (22-30) mmol/L BUN 13 13 (9-20) mg/dL Creatinine 1.20 1.34 H (0.66-1.25) mg/dL Glucose 125 H 82 (74-99) mg/dL Calcium 8.8 8.2 L (8.4-10.2) mg/dL Total Bilirubin 1.8 H 1.4 H (0.2-1.3) mg/dL AST 258 H 1131 H (17-59) U/L ALT 230 H 805 H (21-72) U/L Alkaline Phosphatase 86 77 (38-126) U/L Total Protein 5.9 L 5.2 L (6.3-8.2) g/dL Albumin 3.5 3.0 L (3.5-5.0) g/dL Assessment and Plan Plan: Impression Present on admission right upper quadrant pain with nausea vomiting with ultrasound of the abdomen showing hepatomegaly Present on admission elevated ast,alt unclear etiology Self-report of daily alcohol use 6 beers a day Use of marijuana daily History of a a prescription drug abuse History depressive anxiety disorder nonspecified Plan We'll consult GI service to evaluate the elevated AST and ALT await recommendations Continue IV fluid for hydration Pain control Repeat labs in the morning DVT and GI prophylaxis Further surgical recommendations after Dr. Voss evaluates patient and lab findings Keep nothing by mouth until surgical eval complete Thank you for allowing us to participate in the surgical management of your patient further surgical recommendations are pending clinical course The above impression and plan of care have been discussed and directed by signing physician. Berna Chapin nurse practitioner acting as scribe for signing physician. <Thu Voss - Last Filed: 06/29/17 12:38> Surgical - Exam Vital Signs Temp Pulse Resp BP Pulse Ox 97 F L 122 H 20 122/79 98 06/28/17 21:06 06/28/17 21:06 06/28/17 21:06 06/28/17 21:06 06/28/17 21:06 Results - Labs 06/29/17 08:08 06/29/17 08:08 Abnormal Lab Results - Last 24 Hours (Table) 06/28/17 06/28/17 06/28/17 Range/Units 21:34 21:34 21:34 WBC 11.8 H (3.8-10.6) k/uL Monocytes # (0-1.0) k/uL PT (9.0-12.0) sec INR (<1.2) Sodium 135 L (137-145) mmol/L Chloride (98-107) mmol/L Carbon Dioxide 19 L (22-30) mmol/L Creatinine (0.66-1.25) mg/dL Glucose 125 H (74-99) mg/dL Plasma Lactic Acid Karthik 2.4 H* (0.7-2.0) mmol/L Calcium (8.4-10.2) mg/dL Total Bilirubin 1.8 H (0.2-1.3) mg/dL Delta Bilirubin (0.0-0.2) mg/dL AST 258 H (17-59) U/L ALT 230 H (21-72) U/L Total Protein 5.9 L (6.3-8.2) g/dL Albumin (3.5-5.0) g/dL Amylase <30 L (30-110) U/L Urine Protein (Negative) Urine Bilirubin (Negative) Hyaline Casts (0-2) /lpf Urine Mucus (None) /hpf 06/28/17 06/29/17 06/29/17 Range/Units 21:34 08:08 08:08 WBC (3.8-10.6) k/uL Monocytes # 1.1 H (0-1.0) k/uL PT (9.0-12.0) sec INR (<1.2) Sodium (137-145) mmol/L Chloride 109 H (98-107) mmol/L Carbon Dioxide (22-30) mmol/L Creatinine 1.34 H (0.66-1.25) mg/dL Glucose (74-99) mg/dL Plasma Lactic Acid Karthik (0.7-2.0) mmol/L Calcium 8.2 L (8.4-10.2) mg/dL Total Bilirubin 1.4 H (0.2-1.3) mg/dL Delta Bilirubin 0.4 H (0.0-0.2) mg/dL AST 1131 H (17-59) U/L ALT 805 H (21-72) U/L Total Protein 5.2 L (6.3-8.2) g/dL Albumin 3.0 L (3.5-5.0) g/dL Amylase <30 L (30-110) U/L Urine Protein 1+ H (Negative) Urine Bilirubin 1+ H (Negative) Hyaline Casts 47 H (0-2) /lpf Urine Mucus Rare H (None) /hpf 06/29/17 Range/Units 08:08 WBC (3.8-10.6) k/uL Monocytes # (0-1.0) k/uL PT 12.7 H (9.0-12.0) sec INR 1.3 H (<1.2) Sodium (137-145) mmol/L Chloride (98-107) mmol/L Carbon Dioxide (22-30) mmol/L Creatinine (0.66-1.25) mg/dL Glucose (74-99) mg/dL Plasma Lactic Acid Karthik (0.7-2.0) mmol/L Calcium (8.4-10.2) mg/dL Total Bilirubin (0.2-1.3) mg/dL Delta Bilirubin (0.0-0.2) mg/dL AST (17-59) U/L ALT (21-72) U/L Total Protein (6.3-8.2) g/dL Albumin (3.5-5.0) g/dL Amylase (30-110) U/L Urine Protein (Negative) Urine Bilirubin (Negative) Hyaline Casts (0-2) /lpf Urine Mucus (None) /hpf Diabetes panel 06/28/17 06/29/17 Range/Units 21:34 08:08 Sodium 135 L 137 (137-145) mmol/L Potassium 4.7 4.2 (3.5-5.1) mmol/L Chloride 107 109 H (98-107) mmol/L Carbon Dioxide 19 L 22 (22-30) mmol/L BUN 13 13 (9-20) mg/dL Creatinine 1.20 1.34 H (0.66-1.25) mg/dL Glucose 125 H 82 (74-99) mg/dL Calcium 8.8 8.2 L (8.4-10.2) mg/dL AST 258 H 1131 H (17-59) U/L ALT 230 H 805 H (21-72) U/L Alkaline Phosphatase 86 77 (38-126) U/L Total Protein 5.9 L 5.2 L (6.3-8.2) g/dL Albumin 3.5 3.0 L (3.5-5.0) g/dL Calcium panel 06/28/17 06/29/17 Range/Units 21:34 08:08 Calcium 8.8 8.2 L (8.4-10.2) mg/dL Albumin 3.5 3.0 L (3.5-5.0) g/dL Pituitary panel 06/28/17 06/29/17 Range/Units 21:34 08:08 Sodium 135 L 137 (137-145) mmol/L Potassium 4.7 4.2 (3.5-5.1) mmol/L Chloride 107 109 H (98-107) mmol/L Carbon Dioxide 19 L 22 (22-30) mmol/L BUN 13 13 (9-20) mg/dL Creatinine 1.20 1.34 H (0.66-1.25) mg/dL Glucose 125 H 82 (74-99) mg/dL Calcium 8.8 8.2 L (8.4-10.2) mg/dL Adrenal panel 06/28/17 06/29/17 Range/Units 21:34 08:08 Sodium 135 L 137 (137-145) mmol/L Potassium 4.7 4.2 (3.5-5.1) mmol/L Chloride 107 109 H (98-107) mmol/L Carbon Dioxide 19 L 22 (22-30) mmol/L BUN 13 13 (9-20) mg/dL Creatinine 1.20 1.34 H (0.66-1.25) mg/dL Glucose 125 H 82 (74-99) mg/dL Calcium 8.8 8.2 L (8.4-10.2) mg/dL Total Bilirubin 1.8 H 1.4 H (0.2-1.3) mg/dL AST 258 H 1131 H (17-59) U/L ALT 230 H 805 H (21-72) U/L Alkaline Phosphatase 86 77 (38-126) U/L Total Protein 5.9 L 5.2 L (6.3-8.2) g/dL Albumin 3.5 3.0 L (3.5-5.0) g/dL Assessment and Plan Plan: Patient examined. Films and labs reviewed. He has acalculous cholecystitis. He drinks alcohol 6 beers daily until a week ago. Elevated LFTs could be alcohol related. Discussed with Dr. Vera. Plan for lap dm possible open. Plan to observe LFT trends
[2017-06-29] MEDS: PANTOPRAZOLE 40 MG/10 ML VIAL IVP SCH ×2 (11:58→20:57)
[2017-06-29] MEDS ORDERED: IV FLUID CONTINUATION 1,000 ML IV ONE ×2 (12:25)
[2017-06-29] MEDS ORDERED: LIDOCAINE 2%-EPI 1:100,000 20 ML VIAL SQ ONE (13:09)
[2017-06-29] MEDS ORDERED: PHENYLEPHRINE-0.9% NACL SYG 1 MG/10 ML SYRINGE ONE (13:13)
[2017-06-29] MEDS ORDERED: PROPOFOL 10 MG/ML 20 ML VIAL IV ONE (13:13)
[2017-06-29] MEDS ORDERED: MORPHINE SULFATE 10 MG/ML SYRINGE ONE (13:13)
[2017-06-29] MEDS ORDERED: LIDOCAINE 1% INJ 10MG/ML (20 ML MDV) ONE (13:13)
[2017-06-29] MEDS ORDERED: ROCURONIUM BROMIDE 10 MG/ML 10 ML VIAL IV ONE (13:13)
[2017-06-29] MEDS ORDERED: NEOSTIGMINE 1 MG/ML 10 ML VIAL ONE (13:13)
[2017-06-29] MEDS ORDERED: fentaNYL (PF) 50 MCG/ML 2 ML AMP ONE (13:13)
[2017-06-29] MEDS ORDERED: ALBUTEROL INHALER 60 PUFF/8 GM INHALER INHALATION ONE (13:13)
[2017-06-29] MEDS ORDERED: GLYCOPYRROLATE 0.2 MG/ML 2 ML VIAL ONE (13:13)
[2017-06-29] MEDS ORDERED: MIDAZOLAM 2 MG/2 ML VIAL ONE (13:13)
[2017-06-29] MEDS ORDERED: SUCCINYLCHOLINE CHLORIDE 100 MG/5 ML SYR IV ONE (13:13)
[2017-06-29] MEDS ORDERED: SODIUM CHLORIDE 0.9% 1,000 ML IV ONE ×2 (13:43→14:17)
--- NOTE | 2017-06-29 14:14 | P.OP ---
Date of Procedure: 06/29/17 Preoperative Diagnosis: 1. Acute acalculous cholecystitis 2. Alcohol dependence 3. History of recent marijuana use Postoperative Diagnosis: Same Procedure(s) Performed: Laparoscopic cholecystectomy. Implants: NA Anesthesia: JARED, local Surgeon: Thu Voss Estimated Blood Loss (ml): 10 Pathology: none sent Condition: stable Disposition: PACU Indications for Procedure: 26 years old male presented with epigastric and right upper quadrant pain. Computed tomography scan showed gallbladder wall thickening. Ultrasound showed no stones but no gallbladder wall thickening up to 1 cm. He also had elevated LFTs which is most likely secondary to alcohol intake Operative Findings: Acute acalculous cholecystitis Diffuse enlargement of liver Description of Procedure: The patient was brought to the operating room and placed in supine position with both arms out. General anesthesia with endotracheal intubation was performed as per anesthesia team. Chlorhexidine was used to prep the abdomen followed by application of sterile drapes. A timeout was performed to verify correct patient and correct procedure. Patient was confirmed to receive perioperative IV antibiotics , heparin 5000 units subcutaneous injection and bilateral SCDs were placed. A 5 mm skin incision was made below the left costal margin at the anterior axillary line. A Veress needle was inserted and pneumoperitoneum was established to a pressure of 15 mmHg. A 5 mm Optiview trocar was loaded on a 5 mm 30 laparoscope and the peritoneal cavity was entered under direct vision using the Optiview technique. Additional 5 mm trocar was placed in the supraumbilical location and two 5 mm trocars along the right subcostal margin. The left 5 mm trocar was upsized to 10mm. The patient was placed in reverse Trendelenburg with right side up. There is diffuse enlargement of the liver The fundus of the gallbladder was grasped with an atraumatic grasper and was retracted over the dome of the liver. The infundibulum was grasped with an atraumatic grasper and retracted towards the pelvis to expose the Calot's triangle. Lateral and medial peritoneal attachment of the gallbladder bladder was dissected. Circumferential dissection was carried out around the cystic artery and the cystic duct to obtain adequate length for clip application. All the surrounding fibrofatty tissue were removed. Critical view was obtained with cystic duct and cystic artery as the only two structures entering the gallbladder. Two clips were applied on the patient's side and one on the specimen side on the cystic duct first followed by the cystic artery. Endoshears were used to divide the cystic duct and the cystic artery. The gallbladder was taken off the liver bed using a L-hook. It was placed in an endocatch specimen bag and removed through the 10mm port. The gallbladder was passed off as a specimen. The abdominal cavity was inspected. The clips on the cystic duct and cystic artery stump were intact and no bleeding noted from the liver bed. All the trocar sites were examined and no evidence of bleeding. The 10mm port site was closed with two transfascial sutures of 0 Vicryl using a Rolly Marian device. The pneumoperitoneum was evacuated and all the trocars were removed. Local anesthetic was infiltrated along the trocar sites and incisions were closed using 4-0 Monocryl followed by application of Dermabond skin glue. The sponge, instrument and needle count were correct x2. Patient was extubated and taken to post anesthesia care unit in stable condition.
[2017-06-30] MEDS: HYDROmorphone 1 MG/ML 1 ML SYRINGE IV PRN ×5 (02:51→23:18)
[2017-06-30] MEDS: SODIUM CHLORIDE 0.9% 1,000 ML IV SCH ×4 (02:52→18:27)
--- NOTE | 2017-06-30 04:37 | HP ---
HISTORY AND PHYSICAL CHIEF COMPLAINT: Abdominal pain. HISTORY OF PRESENT ILLNESS: This 26-year-old gentleman with a past medical history of multiple medical problems including history of nicotine dependence, THC, history of prescription drug abuse being followed by Dr. Jain in the outpatient setting was complaining of upper abdominal pain. The pain is felt in the anterior part of the abdomen, which is going to the flanks also. The patient had an abdominal ultrasound yesterday. The abdominal ultrasound showed hepatomegaly and as well as pronounced gallbladder with thickening and Dr. Voss is also following the patient for possible laparoscopic cholecystectomy. There is no history of any fever, rigors. No history of headache, loss of consciousness or seizure. PAST MEDICAL HISTORY: History of THC, history of nicotine dependence, history of prescription drug abuse. MEDICATIONS: Home medications are: 1. Zofran 4 mg q.8 p.r.n. 2. Prilosec 40 mg p.o. daily. ALLERGIES: Allergies are none. FAMILY HISTORY: No history of heart disease or strokes in the family. SOCIAL HISTORY: Smoking history, alcohol history and THC. REVIEW OF SYSTEMS: ENT: No diminished hearing or diminished vision. CARDIOVASCULAR: No angina. RESPIRATORY: No cough or hemoptysis. GI: As mentioned earlier. : No dysuria. NERVOUS SYSTEM: No numbness or weakness. ALLERGY/IMMUNOLOGY: No history of asthma or hayfever. MUSCULOSKELETAL: As mentioned earlier. HEMATOLOGY/ONCOLOGY: No history of anemia. ENDOCRINE: No history of diabetes or hypothyroidism. CONSTITUTIONAL: As mentioned earlier. DERMATOLOGY: Negative. RHEUMATOLOGY: Negative. PSYCHIATRY: As mentioned earlier. PHYSICAL EXAMINATION: The patient is alert and oriented x3. The pulse is 106, blood pressure 117/61, respirations 16, temperature 97.9, pulse ox 96% on 3 L. HEENT: Conjunctivae normal. Oral mucosa moist. NECK: No jugular venous distention. No lymph nodes enlargement. CARDIOVASCULAR: S1, S2 muffled. No S3, no S4. RESPIRATORY; Breath sounds diminished at the bases. No rhonchi, no crackles. ABDOMEN: Soft. Mild diffuse tenderness in the upper abdomen. No guarding. No rigidity. Otherwise no rebound tenderness. Bowel sounds diminished. No ascites. LEGS: No edema, no swelling. NERVOUS SYSTEM: Higher function as mentioned earlier. Moves all 4 limbs. No focal motor or sensory deficit. LYMPHATICS: No lymphadenopathy of the neck, axillae or groin. SKIN: No ulcers, rashes or bleeding. LABS: WBC 10.2, hemoglobin 15.4. INR 1.3. Sodium 137, potassium 4.2. AST 1131 and ALT is 805. ASSESSMENT: 1. Abdominal pain, possible acute cholecystitis. 2. Possible acute hepatitis, possibly alcoholic in nature. 3. History of nicotine dependence. 4. History of alcoholism. 5. Mild hyponatremia. RECOMMENDATIONS AND DISCUSSION: In this 26-year-old gentleman who presented with multiple complex medical issues, we will monitor the patient closely. Continue the current medications. Continue symptomatic treatment. Broad-spectrum IV antibiotics have been given from the ER. We will follow the patient closely with surgery for possible surgery otherwise continue to monitor. Repeat labs. Alcohol cessation advice has been given. Prognosis guarded. Discussed with the patient, understands and agrees. Further recommendations to follow. MMODL / IJN: [id number] /
[2017-06-30 06:58] LABS: CH 31.8; CHCM 33.1; HCT 45.9 % (39.0-53.0); MCH 31.6 pg (25.0-35.0); MCHC 32.7 g/dL (31.0-37.0); MCV 96.8 fL (80.0-100.0); RBC 4.74 m/uL (4.30-5.90); RDW 15.4 % (11.5-15.5); WBC 9.8 k/uL (3.8-10.6)
[2017-06-30 07:14] LABS: ALT 780 U/L (21-72); Alkaline Phosphatase 75 U/L (38-126); Anion Gap 7 mmol/L; Blood Urea Nitrogen 15 mg/dL (9-20); Calcium 8.5 mg/dL (8.4-10.2); Carbon Dioxide 19 mmol/L (22-30); Chloride 109 mmol/L (98-107); Glucose 79 mg/dL (74-99); Non-African American GFR(MDRD) >60 (>60 ml/min/1.73 sqM); Potassium 4.9 mmol/L (3.5-5.1); Sodium 135 mmol/L (137-145); Total Protein 5.1 g/dL (6.3-8.2)
[2017-06-30 07:21] LABS: AST 893 U/L (17-59)
[2017-06-30] MEDS: PANTOPRAZOLE 40 MG/10 ML VIAL IVP SCH (07:53)
--- NOTE | 2017-06-30 13:14 | CONS ---
CONSULTATION DATE OF DICTATION: 06/30/17. REQUESTING PHYSICIAN: Dr. Jain. REASON FOR CONSULTATION: Elevated LFTs. HISTORY OF PRESENT ILLNESS: The patient is a 26-year-old, white male. Admit to hospital with epigastric pain for the last one month duration. The patient has history of heavy alcohol abuse and has been drinking almost daily for the last 3-4 years duration. The patient started experiencing pain in the epigastric area radiating to the flank area. Came to the emergency room, was noted to have mild elevations in serum transaminases but was discharged home. He continued to have worsening pain, he came back to the emergency room yesterday and was admitted to the hospital because of worsening elevated LFTs. He did have an ultrasound of the gallbladder done that showed significant thickening of the gallbladder wall suspicious for acalculous cholecystitis. The patient however did not have any gallstones. He was seen by Dr. Voss and he underwent a laparoscopic cholecystectomy yesterday and at the time of surgery was noted to have hepatomegaly. The patient this morning is feeling better. He still has some epigastric pain. No nausea, no vomiting. He denies any history of jaundice or hepatitis in the past. Has moderate to heavy drinking. He has no history of intravenous drug use. He does smoke pot on a regular basis. PAST MEDICAL HISTORY: Chronic smoker and chronic alcohol use. MEDICATIONS: At home: 1. Zofran. 2. Prilosec. ALLERGIES: No known drug allergies. SOCIAL HISTORY: Smoker and alcohol use as mentioned above. FAMILY HISTORY: Unremarkable. REVIEW OF SYSTEMS: Cardiopulmonary denies any chest pain, shortness of breath. Genitourinary: No dysuria or hematuria. Musculoskeletal: Unremarkable. Skin: Unremarkable. Endocrine: Unremarkable. Psychiatric: Unremarkable. Neurological: Unremarkable. ENT/Vision: Unremarkable. Constitutional: No recent weight loss. No fevers, chills, night sweats. Endocrine: Unremarkable. Hematology: Unremarkable. PHYSICAL EXAMINATION: He appears comfortable. No apparent distress. VITAL SIGNS: Stable. Blood pressure. Is 117/61, pulse rate 106, temperature 97.9. HEENT examination unremarkable. Conjunctivae pink. Sclerae anicteric. Oral cavity no lesions. Neck: No jugular venous distention or lymph node enlargement. Chest was clear to auscultation. HEART: Regular rate and rhythm. ABDOMEN: Soft. Bowel sounds are positive. There is some tenderness at the site of surgery. Extremities no pedal edema. SKIN: No rashes. Neuro: Alert and oriented x3. No focal deficits. LAB DATA: The following are the labs that were done at the time of admission. Labs from 06/29/17 PT is 12.7, INR 1.3. CBC was normal. AST was 1131, ALT 805. Today AST 893, ALT 718. T. bili and alk phos within normal limits. Serum alcohol less than 10. Hepatitis serology for A, B, and C are negative. IMPRESSION: This is a patient who was admitted to hospital with severe epigastric pain for the last 2 days duration, presents with acute elevations in transaminases with ALT and AST in the range of at 801 and 1031, respectively and was also noted to have mild elevations in serum transaminases the day prior to it. No prior history of chronic liver disease. Most likely, we are dealing with an acute hepatocellular process probably related in part related to alcohol injury to the liver with superimposed acute hepatitis. The patient denies taking any prescription medications or [id number] medications in the last several days. Hepatitis serology for A, B, and C negative. He is status post gallbladder surgery for acalculous cholecystitis yesterday. This morning repeat labs show some improvement in serum transaminases. RECOMMENDATIONS: Recommendations at this time: We will continue to watch his serum transaminases closely since they are already improving, I will not plan on any further investigation. We will repeat them in the morning and will follow them closely. Thank you for this consultation. MMKENDALLL / JOHN PAULN: [id number] /
[2017-06-30] MEDS: NAPROXEN 250 MG TAB PO SCH ×2 (18:18→22:06)
[2017-06-30] MEDS: PANTOPRAZOLE 40 MG TABLET PO SCH (18:27)
--- NOTE | 2017-06-30 21:30 | P.PN ---
Subjective Principal diagnosis: Cholecystitis The patient is status post cholecystectomy. He reports doing very well. No reports of nausea and vomiting. He is tolerating diet. His pain is controlled. Objective - Vital Signs Vital signs: Vital Signs Temp 98.4 F 06/30/17 07:05 Pulse 89 06/30/17 07:05 Resp 16 06/30/17 07:05 BP 146/68 06/30/17 07:05 Pulse Ox 97 06/30/17 07:05 Intake & Output 06/29/17 06/30/17 06/30/17 18:59 06:59 18:59 Intake Total 2500 1475 Output Total 700 1000 Balance 1800 475 Intake: IV 2500 Intake, IV Titration 375 Amount Sodium Chloride 0.9% 1, 375 000 ml @ 125 mls/hr IV . Q8H SUSHILA Rx#:[id number] Oral 1100 Output: Urine 700 1000 Other: # Voids 1 - Exam GENERAL: Well developed and in no acute distress. Pleasant. HEENT: No sclera icterus. Extraocular movements grossly intact. Moist buccal mucosa. Head is atraumatic, normocephalic. Hears conversational speech. No nasal drainage. CHEST: Non-labored respirations and equal bilateral excursions. CARDIOVASCULAR: Regular rate and rhythm. Palpable 2+ radial pulses. ABDOMEN: Soft. Nondistended. No peritoneal signs. MUSCULOSKELETAL: No clubbing, cyanosis or edema. NEUROLOGIC: No focal or lateralizing signs. PSYCH: Appropriate affect. Alert and oriented to person, place and time. - Labs CBC & Chem 7: 06/30/17 06:34 06/30/17 06:34 Labs: Abnormal Lab Results - Last 24 Hours (Table) 06/30/17 Range/Units 06:34 Sodium 135 L (137-145) mmol/L Chloride 109 H (98-107) mmol/L Carbon Dioxide 19 L (22-30) mmol/L Creatinine 1.42 H (0.66-1.25) mg/dL AST 893 H (17-59) U/L ALT 780 H (21-72) U/L Total Protein 5.1 L (6.3-8.2) g/dL Albumin 2.9 L (3.5-5.0) g/dL Microbiology - Last 24 Hours (Table) 06/28/17 21:34 Blood Culture - Preliminary Blood No Growth after 24 hours Assessment and Plan (1) Acute cholecystitis Status: Acute (2) Abdominal pain Status: Acute (3) GERD (gastroesophageal reflux disease) Status: Acute Plan: 1. Patient is cleared from a surgical standpoint for discharge when medically clear. 2. Follow-up in the office with Dr. Voss.
[2017-07-01] MEDS: SODIUM CHLORIDE 0.9% 1,000 ML IV SCH (04:58)
[2017-07-01 07:11] VITALS: BP 122/86; PULSE 84; RESP 16; TEMP 97.5
[2017-07-01 07:25] LABS: ALT 565 U/L (21-72); AST 344 U/L (17-59); Alkaline Phosphatase 79 U/L (38-126); Anion Gap 7 mmol/L; Blood Urea Nitrogen 13 mg/dL (9-20); Calcium 8.5 mg/dL (8.4-10.2); Carbon Dioxide 21 mmol/L (22-30); Chloride 106 mmol/L (98-107); Glucose 66 mg/dL (74-99); Non-African American GFR(MDRD) >60 (>60 ml/min/1.73 sqM); Potassium 4.6 mmol/L (3.5-5.1); Sodium 134 mmol/L (137-145); Total Bilirubin 0.9 mg/dL (0.2-1.3); Total Protein 4.8 g/dL (6.3-8.2)
[2017-07-01] MEDS: PANTOPRAZOLE 40 MG TABLET PO SCH (07:35)
[2017-07-01] MEDS: NAPROXEN 250 MG TAB PO SCH (07:35)
--- NOTE | 2017-07-01 11:01 | P.PN ---
Subjective Principal diagnosis: Cholecystitis The patient is status post cholecystectomy. He had been started on naproxen for pain. His pain is well-controlled. He reports feeling much better today than yesterday. Overall liver enzymes have improved. No reports of nausea and vomiting. Objective - Vital Signs Vital signs: Vital Signs Temp 97.5 F L 07/01/17 07:10 Pulse 84 07/01/17 07:10 Resp 16 07/01/17 07:10 BP 122/86 07/01/17 07:10 Pulse Ox 94 L 07/01/17 07:10 Intake & Output 06/30/17 07/01/17 07/01/17 18:59 06:59 18:59 Intake Total 300 1050 Output Total 600 Balance 300 450 Intake: Intake, IV Titration 300 Amount Sodium Chloride 0.9% 1, 300 000 ml @ 125 mls/hr IV . Q8H SUSHILA Rx#:[id number] Oral 1050 Output: Urine 600 Other: # Voids 2 - Exam GENERAL: Well developed and in no acute distress. Pleasant. HEENT: No sclera icterus. Extraocular movements grossly intact. Moist buccal mucosa. Head is atraumatic, normocephalic. Hears conversational speech. No nasal drainage. CHEST: Non-labored respirations and equal bilateral excursions. CARDIOVASCULAR: Regular rate and rhythm. Palpable 2+ radial pulses. ABDOMEN: Soft. Nondistended. No peritoneal signs. MUSCULOSKELETAL: No clubbing, cyanosis or edema. NEUROLOGIC: No focal or lateralizing signs. PSYCH: Appropriate affect. Alert and oriented to person, place and time. - Labs CBC & Chem 7: 06/30/17 06:34 07/01/17 06:24 Labs: Abnormal Lab Results - Last 24 Hours (Table) 07/01/17 Range/Units 06:24 Sodium 134 L (137-145) mmol/L Carbon Dioxide 21 L (22-30) mmol/L Glucose 66 L (74-99) mg/dL AST 344 H (17-59) U/L ALT 565 H (21-72) U/L Total Protein 4.8 L (6.3-8.2) g/dL Albumin 2.7 L (3.5-5.0) g/dL Microbiology - Last 24 Hours (Table) 06/28/17 21:34 Blood Culture - Preliminary Blood No Growth after 48 hours Assessment and Plan (1) Acute cholecystitis Status: Acute (2) Abdominal pain Status: Acute (3) GERD (gastroesophageal reflux disease) Status: Acute Plan: 1. For his history of narcotic abuse, alternative of ibuprofen written on his behalf. He had tolerated naproxen while in-house. 2. Follow-up with Dr. Voss in 1 week.
--- NOTE | 2017-07-01 13:06 | PN ---
PROGRESS NOTE DATE OF SERVICE: 06/30/17 INTERVAL HISTORY: This 26-year-old gentleman who was admitted with abdominal pain also had acute cholecystitis. Patient had surgery. LFTs elevated possibly secondary to alcoholic hepatitis. No chest pain. No palpitations. No fever. PHYSICAL EXAM: Alert and oriented times three. Pulse 97. Blood pressure 127/70. Respiratory rate 18, temperature 98.1, pulse ox 94% n room air. HEENT: Conjunctivae normal. Neck no jugular venous distention. Cardiovascular: S1, S2. Breath sounds diminished at the bases. No rhonchi. No crackles. ABDOMEN: Soft, status post surgery. Legs: No edema. No swelling. LABORATORY DATA: CBC within normal limits. Sodium 135, CO2 is 19. Otherwise AST is 893 and ALT is 780. ASSESSMENT: 1. Abdominal pain. Postop acute cholecystitis. Status post post laparoscopic cholecystectomy. 2. History of nicotine dependence. 3. Possible acute hepatitis possibly alcoholic in nature. 4. History of alcoholism. 5. Mild hyponatremia. RECOMMENDATIONS AND DISCUSSION: Continue current medications. Continue symptomatic treatment. Repeat labs in the morning. Otherwise closely follow with surgery. Guarded prognosis. Further recommendations to follow. MMODL / IJN: [id number] /
--- NOTE | 2017-07-01 15:39 | PN ---
PROGRESS NOTE DATE OF SERVICE: 07/01/2017 The patient is a 26-year-old white male admitted to the hospital with abdominal pain, elevated LFTs and acalculous cholecystitis. He underwent laparoscopic cholecystectomy by Dr. Voss 2 days ago. He is feeling much better. Abdominal pain has resolved. He denies any symptoms today. PHYSICAL EXAMINATION: Appears comfortable. Blood pressure 120/71, pulse 97, temperature 98. HEENT examination unremarkable. Conjunctivae pink. Sclerae anicteric. Oral cavity, no lesions. NECK: No JVD or lymph node enlargement: CHEST: Clear to auscultation. HEART: Regular rate and rhythm. ABDOMEN: Soft. Bowel sounds are positive. No organomegaly. EXTREMITIES: No pedal edema. SKIN: No rashes. NEURO: Alert and oriented x3. No focal deficits. Labs from today: AST is down to 344, ALT is 565. T. bili and alk phos are normal. IMPRESSION: 1. This is a patient admitted to hospital with epigastric pain, elevated LFTs and acalculous cholecystitis for which he underwent gallbladder surgery by Dr. Voss 2 days ago. His serum transaminases are significantly improved. Hepatitis serology for A, B, and C were negative. Today AST is down to 344, ALT is down to 565. 2. History of heavy alcohol abuse. RECOMMENDATIONS: Since the serum transaminases are getting better the patient can be discharged home today. He can have repeat labs done in 1 week. If they are still elevated he was advised to follow up in the office. Thank you for this consultation. MMODL / IJN: [id number] /
--- NOTE | 2017-07-01 17:13 | P.DS ---
Providers Date of admission: 06/28/17 22:57 Attending physician: Gt Mendoza Consults: 06/28/17 22:36 Consult Physician Stat Consulting Provider: Thu Voss Consult Reason/Comments: Cholecystitis Do you want consulting provider notified?: Already Contacted 06/29/17 09:36 Consult Physician Stat Consulting Provider: Manuel Malik Consult Reason/Comments: Elevated AST ALT Do you want consulting provider notified?: Yes Primary care physician: Cristobal Mason [facility] Course: This 26-year-old gentleman was admitted with abdominal pain and possibly acute cholecystitis. Patient underwent laparoscopic cholecystectomy. By Dr. Schroeder. Patient improved significantly. Dr. Vera saw the patient. LFTs were increased possibly secondary to alcoholic hepatitis. Recommended close outpatient follow-up. I also recommended alcohol cessation rehab and possible AA attendance as well. Patient understands and agrees. On exam vitals stable. S1 and S2 normal. Breath sounds equal. Abdomen soft status post surgery. Final diagnosis 1. Abdominal pain acute cholecystitis status post laparoscopic cholecystectomy. 2. History of nicotine dependence 3. Acute hepatitis possibly alcoholic in nature 4. History of EtOH 5. Mild hyponatremia Patient Condition at Discharge: Fair Plan - Discharge Summary New Discharge Prescriptions: New Ibuprofen 600 mg PO AC-TID #30 tablet Pantoprazole [Protonix] 40 mg PO DAILY #30 tab Continue Omeprazole [PriLOSEC] 40 mg PO DAILY #14 capsule. Ondansetron Odt [Zofran ODT] 4 mg PO Q8HR PRN #10 tab PRN Reason: Nausea Discharge Medication List Omeprazole [PriLOSEC] 40 mg PO DAILY #14 capsule. 06/27/17 [Rx] Ondansetron Odt [Zofran ODT] 4 mg PO Q8HR PRN #10 tab 06/27/17 [Rx] Ibuprofen 600 mg PO AC-TID #30 tablet 07/01/17 [Rx] Pantoprazole [Protonix] 40 mg PO DAILY #30 tab 07/01/17 [Rx] Follow up Appointment(s)/Referral(s): Marlon Jain MD [Primary Care Provider] - 1-2 days Thu Voss MD [STAFF PHYSICIAN] - 07/10/17 Ambulatory/Diagnostic Orders: Complete Blood Count w/diff [LAB.AMB] Location: Determined By Patient Patient Instructions/Handouts: Laparoscopic Cholecystectomy (DC) Discharge Disposition: HOME SELF-CARE
[2017-07-03 09:58] LABS: Hepatits C Virus RNA, Quant <12 IU/mL (<12); LOG HCV IU/mL <1.08 (<1.08)
== END 2017-07-01 13:40 | disposition home or self-care (01) | DRG 418 ==
LOC: EC 21:04 → 3SUR 22:57
PROVIDERS: ADMIT Hospitalist; ATTEND Hospitalist
PROC: 0FT44ZZ Resection of Gallbladder, Percutaneous Endoscopic Approach (ICD-10-PCS; principal; 2017-06-29 08:45)
DX: K81.0 Acute cholecystitis (principal); E87.1 Hypo-osmolality and hyponatremia; K70.10 Alcoholic hepatitis without ascites; F10.20 Alcohol dependence, uncomplicated; F12.10 Cannabis abuse, uncomplicated; F17.200 Nicotine dependence, unspecified, uncomplicated; K21.9 Gastro-esophageal reflux disease without esophagitis; F32.9 Major depressive disorder, single episode, unspecified; F41.9 Anxiety disorder, unspecified; F11.10 Opioid abuse, uncomplicated; Z79.899 Other long term (current) drug therapy
CPT/HCPCS: 36415; 80053; 80074; 80320; 81001; 82150; 82248; 82977; 83605; 83690; 83735; 85025; 85027; 85610; 87040; 87522; 88304; 96361; 96374; 96375; 99284

== ENCOUNTER 2017-07-03 21:35 | Inpatient (IN) | payer OTHER ==
[2017-07-03] MEDS ORDERED: SODIUM CHLORIDE 0.9% 500 ML IV STA (21:49)
--- NOTE | 2017-07-03 22:09 | ED ---
General Adult HPI - General Chief complaint: Recheck/Abnormal Lab/Rx Stated complaint: Retaining water post gallbladder surg Time Seen by Provider: 07/03/17 21:43 Source: patient, RN notes reviewed Mode of arrival: ambulatory Limitations: no limitations - History of Present Illness Initial comments: 26-year-old male presents to the emergency department with a chief complaint of abdominal pain and leg swelling following a cholecystectomy. Patient states that he has developed a little bit more abdominal bloating and actually swelling. He went to his doctor today and they said everything appear normal he was concerns without that he should be seen. There is been no nausea or vomiting. Patient denies any chest pain or shortness of breath. Patient denies any fever or chills.Patient denies any recent fever, chills, shortness of breath, chest pain, back pain, nausea vomiting, numbness or tingling, dysuria or hematuria, constipation or diarrhea, headaches or visual changes, or any other current symptoms. - Related Data Previous Rx's Medication Instructions Recorded Omeprazole [PriLOSEC] 40 mg PO DAILY #14 capsule.dr 06/27/17 Ibuprofen 600 mg PO AC-TID #30 tablet 07/01/17 Pantoprazole [Protonix] 40 mg PO DAILY #30 tab 07/01/17 Allergies Allergy/AdvReac Type Severity Reaction Status Date / Time No Known Allergies Allergy Verified 07/03/17 21:52 Review of Systems ROS Statement: Those systems with pertinent positive or pertinent negative responses have been documented in the HPI. ROS Other: All systems not noted in ROS Statement are negative. Past Medical History Past Medical History: No Reported History Additional Past Medical History / Comment(s): pneumonia History of Any Multi-Drug Resistant Organisms: None Reported Past Surgical History: No Surgical Hx Reported Past Psychological History: No Psychological Hx Reported Smoking Status: Current every day smoker Past Alcohol Use History: Occasional Past Drug Use History: Marijuana, Prescription Drug Abuse General Exam - General Exam Comments Initial Comments: General: The patient is awake and alert, in no distress, and does not appear acutely ill. Eye: Pupils are equal, round and reactive to light, extra-ocular movements are intact; there is normal conjunctiva bilaterally. No signs of icterus. Ears, nose, mouth and throat: There are moist mucous membranes and no oral lesions. Neck: The neck is supple, there is no tenderness. Cardiovascular: There is a regular rate and rhythm. No murmur, rub or gallop is appreciated. Respiratory: Lungs are clear to auscultation, respirations are non-labored, breath sounds are equal. No wheezes, stridor, rales, or rhonchi. Gastrointestinal: Well-healing surgical incisions Soft, non-distended, non- tender abdomen without masses or organomegaly noted. There is no rebound or guarding present. No CVA tenderness. Bowel sounds are unremarkable. Back: There is no tenderness to palpation in the midline. There is no obvious deformity. No rashes noted. Musculoskeletal: Normal ROM, no tenderness, There is mild bilateral pedal edema. There is no calf tenderness or swelling. Sensation intact. Pulses equal bilaterally 2+. Neurological: CN II-XII intact, There are no obvious motor or sensory deficits. Coordination appears grossly intact. Speech is normal. Skin: Skin is warm and dry and no rashes or lesions are noted. Psychiatric: Cooperative, appropriate mood & affect, normal judgment. Limitations: no limitations Course Vital Signs 07/03/17 07/03/17 07/04/17 21:38 23:06 00:08 Temperature 96.9 F L Pulse Rate 133 H 105 H 124 H Respiratory 18 16 16 Rate Blood Pressure 125/81 124/82 129/86 O2 Sat by Pulse 100 100 96 Oximetry EKG Findings - EKG Comments: EKG Findings:: Sinus tachycardia, possible left atrial enlargement, rightward axis, T-wave inversion in 2-3 aVF and V6 ventricular rate of 120 Medical Decision Making - Medical Decision Making 26-year-old male presents for abdominal pain largely swelling following a cholecystectomy. This time patient's CT of the abdomen and chest x-ray have been reviewed. This is suspicion for source of fluid overload. This time we will keep fluids at a minimum. We'll the patient dose of Lasix. This patient on heparin due to concern for possible PE unable to do a CAT scan or a V/Q tonight will keep him on high dose heparin pending the results of the studies in the a.m. We will also order an echo which the admitting doctors will follow- up on chronic cardiomyopathy due to cardiomegaly noticed on chest x-ray. Patient does agree with the admission questions Answered. - Lab Data Result diagrams: 07/03/17 22:01 07/03/17 22:01 Lab Results 07/03/17 07/03/17 07/03/17 Range/Units 22:01 22:01 22:01 WBC 12.4 H (3.8-10.6) k/uL RBC 5.25 (4.30-5.90) m/uL Hgb 16.5 (13.0-17.5) gm/dL Hct 49.3 (39.0-53.0) % MCV 94.0 (80.0-100.0) fL MCH 31.4 (25.0-35.0) pg MCHC 33.4 (31.0-37.0) g/dL RDW 14.7 (11.5-15.5) % Plt Count 219 (150-450) k/uL Neutrophils % 74 % Lymphocytes % 15 % Monocytes % 8 % Eosinophils % 1 % Basophils % 1 % Neutrophils # 9.1 H (1.3-7.7) k/uL Lymphocytes # 1.9 (1.0-4.8) k/uL Monocytes # 1.0 (0-1.0) k/uL Eosinophils # 0.1 (0-0.7) k/uL Basophils # 0.1 (0-0.2) k/uL Sodium 140 (137-145) mmol/L Potassium 4.0 (3.5-5.1) mmol/L Chloride 108 H (98-107) mmol/L Carbon Dioxide 22 (22-30) mmol/L Anion Gap 10 mmol/L BUN 13 (9-20) mg/dL Creatinine 1.20 (0.66-1.25) mg/dL Est GFR (MDRD) Af Amer >60 (>60 ml/min/1.73 sqM) Est GFR (MDRD) Non-Af >60 (>60 ml/min/1.73 sqM) Glucose 109 H (74-99) mg/dL Calcium 8.9 (8.4-10.2) mg/dL Total Bilirubin 0.7 (0.2-1.3) mg/dL AST 207 H (17-59) U/L ALT 448 H (21-72) U/L Alkaline Phosphatase 94 (38-126) U/L Total Protein 5.8 L (6.3-8.2) g/dL Albumin 3.3 L (3.5-5.0) g/dL Urine Color Yellow Urine Appearance Clear (Clear) Urine pH 5.5 (5.0-8.0) Ur Specific [place] 1.022 (1.001-1.035) Urine Protein 1+ H (Negative) Urine Glucose (UA) Negative (Negative) Urine Ketones Negative (Negative) Urine Blood Negative (Negative) Urine Nitrite Negative (Negative) Urine Bilirubin Negative (Negative) Urine Urobilinogen 3.0 (<2.0) mg/dL Ur Leukocyte Esterase Negative (Negative) Urine RBC 1 (0-5) /hpf Urine WBC 2 (0-5) /hpf Cellular Casts 3 (0) /lpf Hyaline Casts 20 H (0-2) /lpf Urine Mucus Rare H (None) /hpf - Radiology Data Radiology results: report reviewed, image reviewed Disposition Clinical Impression: Pleural effusion, right, Fluid overload, Cardiomegaly, CHF (congestive heart failure), Anasarca Disposition: [facility] Condition: Stable Referrals: Marlon Jain MD [Primary Care Provider] - 1-2 days Decision Date: 07/04/17 Decision Time: 00:21
[2017-07-03 22:20] LABS: Appearance,Urine Clear (Clear); Basophils # (A) 0.1 k/uL (0-0.2); Basophils % (A) 1 %; Bilirubin,Urine Negative (Negative); CH 30.5; CHCM 32.7; Eosinophils # (A) 0.1 k/uL (0-0.7); Eosinophils % (A) 1 %; Glucose,Urine (UA) Negative (Negative); HCT 49.3 % (39.0-53.0); HDW 2.94; HGB 16.5 gm/dL (13.0-17.5); Ketones,Urine Negative (Negative); Leukocyte Esterase,Urine Negative (Negative); Luc # (Auto) 0.22; Luc % (Auto) 2; Lymphocytes # (A) 1.9 k/uL (1.0-4.8); Lymphocytes % (A) 15 %; MCH 31.4 pg (25.0-35.0); MCHC 33.4 g/dL (31.0-37.0); Mean Platelet Volume 8.3; Monocytes % (A) 8 %; Mucus,Urine Rare /hpf; Neutrophils # (A) 9.1 k/uL (1.3-7.7); Neutrophils % (A) 74 %; Nitrite,Urine Negative (Negative); PH, Urine 5.5 (5.0-8.0); Particle Count 4034; Protein,Urine 1+ (Negative); RBC 5.25 m/uL (4.30-5.90); RBC,Urine 1 /hpf (0-5); RDW 14.7 % (11.5-15.5); Specific Gravity,Urine 1.022 (1.001-1.035); UA Billing (MACRO vs. MICRO) MICRO; WBC 12.4 k/uL (3.8-10.6); WBC (Perox) 11.49; WBC,Urine 2 /hpf (0-5)
[2017-07-03 22:23] LABS: ALT 448 U/L (21-72); AST 207 U/L (17-59); Alkaline Phosphatase 94 U/L (38-126); Anion Gap 10 mmol/L; Blood Urea Nitrogen 13 mg/dL (9-20); Calcium 8.9 mg/dL (8.4-10.2); Carbon Dioxide 22 mmol/L (22-30); Chloride 108 mmol/L (98-107); Glucose 109 mg/dL (74-99); Non-African American GFR(MDRD) >60 (>60 ml/min/1.73 sqM); Sodium 140 mmol/L (137-145); Total Bilirubin 0.7 mg/dL (0.2-1.3); Total Protein 5.8 g/dL (6.3-8.2)
[2017-07-03] MEDS ORDERED: RX INFO: IV CONTRAST WAS GIVEN 1 EACH MISC MISCELLANE PRN (22:26)
--- NOTE | 2017-07-03 22:31 | XR ---
EXAM: XR Abdomen Complete, 2 or More Views CLINICAL HISTORY: Reason: Pain TECHNIQUE: Frontal view of the abdomen/pelvis with upright view of the abdomen. COMPARISON: 06/27/2017. FINDINGS: Lower thorax: Bilateral pleural effusions are suggested, right greater than left, with compressive atelectasis of both lower lobes. Bibasilar infiltrates are also likely present. Intraperitoneal space: No free air. Gastrointestinal tract: Unremarkable. No dilation. Organs: The patient appears to be status post cholecystectomy. The liver appears to be enlarged, as seen on prior study. Bones/joints: Unchanged. IMPRESSION: Bilateral pleural effusions are suggested, right greater than left, with compressive atelectasis of both lower lobes. Bibasilar infiltrates are also likely present. Interval worsening since prior study suggested. Clinical correlation recommended. Nonacute abdomen.
--- NOTE | 2017-07-03 23:47 | CT ---
EXAM: CT Abdomen and Pelvis With Intravenous Contrast CLINICAL HISTORY: 5 days status post cholecystectomy with abdominal pain, bloating, and difficulty breathing 2 days. TECHNIQUE: Axial computed tomography images of the abdomen and pelvis with intravenous contrast. DLP is 702.50 mGy-cm. This CT exam was performed using one or more of the following dose reduction techniques: automated exposure control, adjustment of the mA and/or kV according to patient size, and/or use of iterative reconstruction technique. COMPARISON: 06/27/2017. FINDINGS: Lower thorax: Moderate right-sided pleural effusion, interval worsening since the prior study, resulting in near collapse of the visualized right lower lobe. Superimposed infection cannot be definitively excluded. Mild/moderate left pleural effusion, interval worsening since prior study, resulting in compressive atelectasis of the left lower lobe. ABDOMEN: Liver: Periportal edema is noted, which can be seen in fluid overload. Gallbladder and bile ducts: Patient is status post cholecystectomy with associated postoperative changes seen in the gallbladder fossa. No ductal dilation. Pancreas: Unremarkable. No mass. No ductal dilation. Spleen: Unremarkable. No splenomegaly. Adrenals: Unremarkable. No mass. Kidneys and ureters: Unremarkable. No solid mass. No hydronephrosis. Stomach and bowel: Unremarkable. No obstruction. No mucosal thickening. Appendix: No findings to suggest acute appendicitis. PELVIS: Bladder: Unremarkable. No mass. Reproductive: Unremarkable as visualized. ABDOMEN and PELVIS: Intraperitoneal space: Mild intra-abdominal ascites, new since prior study. No evidence of intra-abdominal free air. No evidence of a fluid collection. Bones/joints: Unchanged osseous structures. No acute fracture. No dislocation. Soft tissues: Evidence of moderate anasarca. Small foci of subcutaneous air is seen in the anterior abdominal wall, likely representing postsurgical changes. Vasculature: Unremarkable. No abdominal aortic aneurysm. Lymph nodes: Unremarkable. No grossly enlarged lymph nodes. IMPRESSION: Moderate right-sided pleural effusion, interval worsening since the prior study, resulting in near collapse of the visualized right lower lobe. Mild/moderate left pleural effusion, interval worsening since prior study, resulting in compressive atelectasis of the left lower lobe. Superimposed infection cannot be definitively excluded. Periportal edema. Mild abdominal ascites. Evidence of moderate anasarca. Constellation of findings are suggestive of fluid overload. Clinical correlation recommended. Multiple small foci of subcutaneous air in the anterior abdominal wall, likely representing postsurgical changes. Patient status post cholecystectomy with associated postoperative changes seen in the gallbladder fossa.
[2017-07-04] MEDS ORDERED: RX INFO: IV CONTRAST WAS GIVEN 1 EACH MISC MISCELLANE PRN (00:07)
[2017-07-04] MEDS ORDERED: HEPARIN SODIUM,PORCINE/D5W PMX 25,000 UNIT in DEXTROSE/WATER 1 500ML.BAG IV SCH (00:12)
[2017-07-04] MEDS ORDERED: HEPARIN SODIUM,PORCINE 5,000 UNIT/ML 1 ML VIAL IV PRN (00:12)
[2017-07-04] MEDS ORDERED: HEPARIN SODIUM,PORCINE 10,000 UNIT/ML 1 ML VIAL IV ONE (00:12)
[2017-07-04] MEDS ORDERED: NALOXONE 0.4 MG/ML 1 ML VIAL IV PRN (00:21)
[2017-07-04] MEDS: SODIUM CHLORIDE 0.9% 1,000 ML IV SCH (00:35)
[2017-07-04] MEDS ORDERED: FUROSEMIDE 10 MG/ML 10 ML VIAL IV STA (00:35)
[2017-07-04 00:36] LABS: Creatine Kinase MB 1.7 ng/mL (0.0-2.4); Troponin I 0.034 ng/mL (0.000-0.034)
--- NOTE | 2017-07-04 00:48 | XR ---
EXAM: XR Chest, 2 Views CLINICAL HISTORY: Reason: cough TECHNIQUE: Frontal and lateral views of the chest. COMPARISON: CT of the abdomen/pelvis performed earlier the same day. Chest radiograph dated 01/26/2016. FINDINGS: Lungs: Moderate right and small left pleural effusion resulting in compressive atelectasis of the lower lobes, as seen on the prior study. Perihilar infiltrates with mild peribronchial cuffing suggesting mild pulmonary edema. Pleural space: See above. Heart: The heart appears mildly enlarged, although suboptimally evaluated secondary to the above-mentioned findings. Mediastinum: Unremarkable. Bones/joints: Unremarkable. IMPRESSION: Moderate right and small/moderate left pleural effusion resulting in compressive atelectasis of the lower lobes, as seen on the recent CT. Superimposed infection cannot be definitively excluded. Perihilar infiltrates with mild peribronchial cuffing suggesting mild pulmonary edema.
[2017-07-04 01:26] LABS: INR 1.3 (<1.2); Partial Thromboplastin Time 24.8 sec (22.0-30.0); Prothrombin Time 12.8 sec (9.0-12.0)
[2017-07-04 01:53] VITALS: BMI 26.4
[2017-07-04] MEDS ORDERED: traMADol 50 MG TAB PO SCH ×3 (05:00→18:00)
[2017-07-04] MEDS ORDERED: traMADol 50 MG TAB PO PRN (05:04)
[2017-07-04 06:30] LABS: Partial Thromboplastin Time 93.3 sec (22.0-30.0)
[2017-07-04 06:31] LABS: Basophils # (A) 0.1 k/uL (0-0.2); Basophils % (A) 1 %; CHCM 33.7; Eosinophils # (A) 0.1 k/uL (0-0.7); Eosinophils % (A) 1 %; HCT 45.6 % (39.0-53.0); HDW 2.94; HGB 15.5 gm/dL (13.0-17.5); Luc # (Auto) 0.21; Luc % (Auto) 2; Lymphocytes # (A) 1.6 k/uL (1.0-4.8); Lymphocytes % (A) 17 %; MCH 31.4 pg (25.0-35.0); MCHC 33.9 g/dL (31.0-37.0); MCV 92.5 fL (80.0-100.0); Mean Platelet Volume 8.6; Monocytes # (A) 0.7 k/uL (0-1.0); Monocytes % (A) 8 %; Neutrophils # (A) 6.7 k/uL (1.3-7.7); Neutrophils % (A) 71 %; RBC 4.93 m/uL (4.30-5.90); RDW 14.7 % (11.5-15.5); WBC 9.4 k/uL (3.8-10.6); WBC (Perox) 9.88
[2017-07-04 06:51] LABS: Creatine Kinase MB 1.6 ng/mL (0.0-2.4)
[2017-07-04 06:53] LABS: Troponin I 0.037 ng/mL (0.000-0.034)
--- NOTE | 2017-07-04 09:05 | NM ---
EXAMINATION TYPE: NM pul vent and perfuse DATE OF EXAM: 07/04/2017 COMPARISON: Chest x-ray 07/03/2017 HISTORY: Rule out PE. No other history is provided. History of cough TECHNIQUE: Utilizing inhalation of 73.0 mCi Tc 99m DTPA aerosol and intravenous injection of 5.14 mC i of Tc 99m MAA, ventilation and perfusion images are acquired post injection in multiple projections . FINDINGS: No moderate or large mismatched ventilation/perfusion defects are evident. Triple matched defect at t he right lung base is present. There is diminished radiotracer accumulation on both resting and stres s images through the right lung base which appears to correspond to the small pleural effusion. This has a slightly elevated risk for pulmonary embolism of 22%. IMPRESSION: 1. Triple matched defect right lung base with low intermediate risk for pulmonary embolism 22%.
--- NOTE | 2017-07-04 09:10 | US ---
EXAMINATION TYPE: US venous doppler duplex LE BI DATE OF EXAM: 07/04/2017 8:52 AM COMPARISON: NONE CLINICAL HISTORY: edema. SIDE PERFORMED: bilateral TECHNIQUE: The lower extremity deep venous system is examined utilizing real time linear array sonog ricki with graded compression, doppler sonography and color-flow sonography. VESSELS IMAGED: External Iliac Vein (EIV) Common Femoral Vein Deep Femoral Vein Greater Saphenous Vein * Femoral Vein Popliteal Vein Small Saphenous Vein * Proximal Calf Veins (* superficial vessels) Right Leg: Negative for DVT Left Leg: Negative for DVT IMPRESSION: 1. Lower extremity ultrasound negative for deep venous thrombosis.
--- NOTE | 2017-07-04 09:58 | P.CRDCN ---
History of Present Illness Consult date: 07/04/17 Consult reason: congestive heart failure History of present illness: 26-year-old gentleman is admitted to hospital with a distended abdomen not feeling well and short of breath. The chest x-ray on him showed bilateral pleural effusions and cardiomegaly. He was diagnosed with acute onset congestive heart failure and had been diuresed with significant improvement in his symptoms. He denies leg edema paroxysmal nocturnal dyspnea or orthopnea. He had recently undergone cholecystectomy. An EKG shows sinus tachycardia. D- dimer was elevated patient had a VQ scan and a venous duplex that are both negative for pulmonary embolism and DVT. Patient's clinical presentation is consistent with acute onset congestive heart failure an echocardiogram on him showed LV systolic dysfunction. Patient has acute onset systolic heart failure. I will treat the patient with diuretics beta blockers blood pressure permitting jimmy inhibitors. has history of drug abuse. There is history of EtOH abuse. There is also family history of cardiomyopathy and congestive heart failure Review of Systems Constitutional: Denies chills. Denies fever. Eyes: Denies blurred vision. Denies pain. Ears, nose, mouth and throat: Denies headache. Denies sore throat. Cardiovascular: Denies chest pain. Denies shortness of breath. Respiratory: Denies cough. Shortness of breath Gastrointestinal: has abdominal pain. Denies diarrhea. Denies nausea. Denies vomiting. Musculoskeletal: Denies myalgias. Integumentary: Denies pruritus. Denies rash. Neurological: Denies numbness. Denies weakness. Psychiatric: Denies anxiety. Denies depression. Endocrine: Denies fatigue. Denies weight change. Genitourinary: Denies burning, hematuria, frequency of urination. Hematological: No anemia or excess bleeding. Past Medical History Past Medical History: No Reported History Additional Past Medical History / Comment(s): pneumonia History of Any Multi-Drug Resistant Organisms: None Reported Past Surgical History: No Surgical Hx Reported Additional Past Surgical History / Comment(s): tubes in ears as a child Past Anesthesia/Blood Transfusion Reactions: No Reported Reaction Past Psychological History: No Psychological Hx Reported Smoking Status: Current every day smoker Past Alcohol Use History: Occasional Past Drug Use History: Marijuana, Prescription Drug Abuse - Past Family History Father Family Medical History: Congestive Heart Failure (CHF), Musculoskeletal Disorder Additional Family Medical History / Comment(s): Multiple Sclerosis, Chrons disease, emphesema Medications and Allergies Home Medications Medication Instructions Recorded Confirmed Type Omeprazole [PriLOSEC] 40 mg PO DAILY #14 capsule.dr 06/27/17 07/03/17 Rx Ibuprofen 600 mg PO AC-TID #30 tablet 07/01/17 07/03/17 Rx Pantoprazole [Protonix] 40 mg PO DAILY #30 tab 07/01/17 07/03/17 Rx Allergies Allergy/AdvReac Type Severity Reaction Status Date / Time No Known Allergies Allergy Verified 07/03/17 21:52 Physical Exam Vitals: Vital Signs Temp Pulse Pulse Resp BP BP Pulse Ox 07/04/17 04:00 98.3 F 112 H 20 116/73 96 07/04/17 00:57 97.9 F 117 H 16 129/95 97 07/04/17 00:52 96.9 F L 125 H 18 145/95 98 07/04/17 00:08 124 H 16 129/86 96 07/03/17 23:06 105 H 16 124/82 100 07/03/17 21:38 96.9 F L 133 H 18 125/81 100 Intake and Output 07/03/17 07/04/17 07/04/17 22:59 06:59 14:59 Intake Total 600 455.757 Output Total 4600 Balance -4000 455.757 Intake: Amount of Fluid Infused ( 600 ml) Intake, IV Titration 215.757 Amount Heparin Sodium,Porcine/ 215.757 D5w Pmx 25,000 unit In Dextrose/Water 1 500ml. bag @ 18 UNITS/KG/HR 33.8 mls/hr IV .[id number] [facility] Rx#:[id number] Oral 240 Output: Urine 4600 Other: Voiding Method Urinal # Voids 2 Weight 93.894 kg 87.3 kg General: The patient is awake and alert, in no distress, and does not appear acutely ill. Skin: Skin is warm and dry and no rashes or lesions are noted. Eye: Pupils are equal, round and reactive to light, extra-ocular movements are intact; there is normal conjunctiva bilaterally. Ears, nose, mouth and throat: There are moist mucous membranes and no oral lesions. Neck: The neck is supple, there is no tenderness or JVD. Cardiovascular: There is a regular rate and rhythm. No murmur, rub or gallop is appreciated. Respiratory: Lungs are clear to auscultation, respirations are non-labored, breath sounds are equal. Gastrointestinal: Soft, non-distended, non-tender abdomen without masses or organomegaly noted. There is no rebound or guarding present. Bowel sounds are unremarkable. Back: There is no tenderness to palpation in the midline. There is no obvious deformity. Musculoskeletal: Normal ROM, no tenderness, There is no pedal edema. There is no calf tenderness or swelling. Extremities: 1+ edema Vascular: Femoral pulse is normal. Posterior tibial pulses are normal .Dorsalis pedis is palpable. Neurological: CN II-XII intact. There are no obvious motor or sensory deficits. Speech is normal. Psychiatric: Cooperative, appropriate mood & affect, normal judgment. Results 07/04/17 05:52 07/03/17 22:01 Cardiac Enzymes 07/03/17 07/03/17 07/04/17 Range/Units 22:01 22:01 05:52 AST 207 H (17-59) U/L CK-MB (CK-2) 1.7 1.6 (0.0-2.4) ng/mL Troponin I 0.034 0.037 H* (0.000-0.034) ng/mL Coagulation 07/03/17 07/04/17 Range/Units 22:01 05:52 PT 12.8 H (9.0-12.0) sec APTT 24.8 93.3 H (22.0-30.0) sec CBC 07/03/17 07/04/17 Range/Units 22:01 05:52 WBC 12.4 H 9.4 (3.8-10.6) k/uL RBC 5.25 4.93 (4.30-5.90) m/uL Hgb 16.5 15.5 (13.0-17.5) gm/dL Hct 49.3 45.6 (39.0-53.0) % Plt Count 219 207 (150-450) k/uL Comprehensive Metabolic Panel 07/03/17 Range/Units 22:01 Sodium 140 (137-145) mmol/L Potassium 4.0 (3.5-5.1) mmol/L Chloride 108 H (98-107) mmol/L Carbon Dioxide 22 (22-30) mmol/L BUN 13 (9-20) mg/dL Creatinine 1.20 (0.66-1.25) mg/dL Glucose 109 H (74-99) mg/dL Calcium 8.9 (8.4-10.2) mg/dL AST 207 H (17-59) U/L ALT 448 H (21-72) U/L Alkaline Phosphatase 94 (38-126) U/L Total Protein 5.8 L (6.3-8.2) g/dL Albumin 3.3 L (3.5-5.0) g/dL Current Medications Generic Name Dose Route Start Last Admin Trade Name Freq PRN Reason Stop Dose Admin Furosemide 20 mg 07/04/17 08:00 Lasix IV Q8HR [facility] Heparin Sodium (Porcine) 0 unit 07/04/17 00:12 Heparin IV PER PROTOCOL PRN Low PTT Protocol Heparin Sodium/Dextrose 25,000 500 mls @ 33.8 mls/hr 07/04/17 00:12 07/04/17 07:02 unit/ IV Solution IV 16 units/kg/hr .[id number] [facility] 30.04 mls/hr Protocol Titration 18 UNITS/KG/HR Sodium Chloride 1,000 mls @ 20 mls/hr 07/04/17 00:30 07/04/17 00:35 Saline 0.9% IV 20 mls/hr .Q24H [facility] Administration Metoprolol Succinate 25 mg 07/04/17 09:45 Toprol Xl PO DAILY [facility] Miscellaneous Information 1 each 07/03/17 22:26 Rx Info: Iv Contrast Was Given MISCELLANE 07/05/17 22:26 DAILY PRN Per Protocol Miscellaneous Information 1 each 07/04/17 00:07 Rx Info: Iv Contrast Was Given MISCELLANE 07/06/17 00:07 DAILY PRN Per Protocol Naloxone HCl 0.2 mg 07/04/17 00:21 Narcan IV Q2M PRN Opioid Reversal Pantoprazole Sodium 40 mg 07/04/17 09:00 Protonix PO DAILY [facility] Tramadol HCl 50 mg 07/04/17 05:04 Ultram PO TID PRN Mild to Moderate Pain Intake and Output 07/03/17 07/04/17 07/04/17 22:59 06:59 14:59 Intake Total 600 455.757 Output Total 4600 Balance -4000 455.757 Intake: Amount of Fluid Infused ( 600 ml) Intake, IV Titration 215.757 Amount Heparin Sodium,Porcine/ 215.757 D5w Pmx 25,000 unit In Dextrose/Water 1 500ml. bag @ 18 UNITS/KG/HR 33.8 mls/hr IV .[id number] [facility] Rx#:[id number] Oral 240 Output: Urine 4600 Other: Voiding Method Urinal # Voids 2 Weight 93.894 kg 87.3 kg 07/04/17 05:52 07/03/17 22:01 EKG Interpretations (text) Sinus tachycardia Assessment and Plan Plan: Acute onset systolic congestive heart failure I'm going to review the echocardiogram treat the patient with IV Lasix beta blockers jimmy inhibitors
[2017-07-04 10:16] LABS: Creatine Kinase MB 1.6 ng/mL (0.0-2.4)
[2017-07-04] MEDS: FUROSEMIDE 10 MG/ML 2 ML VIAL IV SCH ×2 (10:21→17:11)
[2017-07-04] MEDS: METOPROLOL SUCCINATE (ER) 25 MG TAB.ER.24H PO SCH (10:22)
[2017-07-04] MEDS: PANTOPRAZOLE 40 MG TABLET PO SCH (10:22)
[2017-07-04 10:39] LABS: Troponin I 0.036 ng/mL (0.000-0.034)
--- NOTE | 2017-07-04 15:05 | P.HPIM ---
History of Present Illness H&P Date: 07/04/17 This is a 26-year-old gentleman who was recently admitted to the hospital for chronic right upper quadrant pain underwent a cholecystectomy. Patient apparently has had issues with alcohol overuse with liver cirrhosis area patient was discharged, came back in to the hospital with complaints of dyspnea. In the emergency room patient was noted to have bilateral pleural effusion patient underwent a VQ scan which did not show any restriction. Underwent a computed tomography scan of the abdomen showed changes with some free air which is also consistent with recent surgery. Patient main complaint was dyspnea did not have any chest pain headaches blurry vision nausea vomiting diarrhea Patient apparently has had significant amount of alcohol use in the past. The EKG on the previous admission did not reveal any abnormalities Patient was given a dose of Lasix and has improved his symptoms significantly at the time of my evaluation patient is currently on room air is able to lay flat states that he did have some trace edema a day prior however it significantly improved Also complains of family history with early cardiac disease and in his grandfather and his uncle at age of 50 Review of systems a 14 point review of system was done nonpertinent was mention above Exam Gen. appearance alert oriented 3 does not appear to be in distress Neck is supple no JVD PERRLA Heart S1-S2 heard no murmurs appreciated S3 is not noted Abdomen is soft and appropriately tender to palpation previous trochars sites are noted Lower x-ray is no edema noted Neuro no focal motor or sensory deficits noted Assessment and plan #1 acute exacerbation of heart or likely systolic concern for alcoholic cardiomyopathy? #2 alcohol overuse #3 recent cholecystectomy #4 ongoing tobacco use graft #5 transaminitis due to alcohol overuse Plan Continue ongoing care echocardiogram. Cardiology evaluation We'll need to be on an KENNA inhibitor and beta ronaldo to be initiated after exacerbation is improved Aspirin therapy as well alcohol cessation and smoking cessation was discussed with the patient. Past Medical History Past Medical History: No Reported History Additional Past Medical History / Comment(s): pneumonia History of Any Multi-Drug Resistant Organisms: None Reported Past Surgical History: No Surgical Hx Reported Additional Past Surgical History / Comment(s): tubes in ears as a child Past Anesthesia/Blood Transfusion Reactions: No Reported Reaction Past Psychological History: No Psychological Hx Reported Smoking Status: Current every day smoker Past Alcohol Use History: Occasional Past Drug Use History: Marijuana, Prescription Drug Abuse - Past Family History Father Family Medical History: Congestive Heart Failure (CHF), Musculoskeletal Disorder Additional Family Medical History / Comment(s): Multiple Sclerosis, Chrons disease, emphesema Medications and Allergies Home Medications Medication Instructions Recorded Confirmed Type Omeprazole [PriLOSEC] 40 mg PO DAILY #14 capsule.dr 06/27/17 07/03/17 Rx Ibuprofen 600 mg PO AC-TID #30 tablet 07/01/17 07/03/17 Rx Pantoprazole [Protonix] 40 mg PO DAILY #30 tab 07/01/17 07/03/17 Rx Allergies Allergy/AdvReac Type Severity Reaction Status Date / Time No Known Allergies Allergy Verified 07/03/17 21:52 Physical Exam Vitals: Vital Signs Temp Pulse Pulse Resp BP BP Pulse Ox 07/04/17 12:00 96.8 F L 109 H 16 122/72 96 07/04/17 08:00 97.0 F L 112 H 16 115/69 97 07/04/17 04:00 98.3 F 112 H 20 116/73 96 07/04/17 00:57 97.9 F 117 H 16 129/95 97 07/04/17 00:52 96.9 F L 125 H 18 145/95 98 07/04/17 00:08 124 H 16 129/86 96 07/03/17 23:06 105 H 16 124/82 100 07/03/17 21:38 96.9 F L 133 H 18 125/81 100 Intake and Output 07/04/17 07/04/17 07/04/17 06:59 14:59 22:59 Intake Total 600 815.757 Output Total 4600 475 Balance -4000 340.757 Intake: Amount of Fluid Infused ( 600 ml) Intake, IV Titration 215.757 Amount Heparin Sodium,Porcine/ 215.757 D5w Pmx 25,000 unit In Dextrose/Water 1 500ml. bag @ 18 UNITS/KG/HR 33.8 mls/hr IV .[id number] [facility] Rx#:[id number] Oral 600 Output: Urine 4600 475 Other: Voiding Method Urinal Urinal # Voids 2 500 Weight 87.3 kg Results CBC & Chem 7: 07/04/17 05:52 07/03/17 22:01 Labs: Abnormal Lab Results - Last 24 Hours (Table) 07/03/17 07/03/17 07/03/17 Range/Units 22:01 22:01 22:01 WBC 12.4 H (3.8-10.6) k/uL Neutrophils # 9.1 H (1.3-7.7) k/uL PT (9.0-12.0) sec INR (<1.2) APTT (22.0-30.0) sec D-Dimer (<0.60) mg/L FEU Chloride 108 H (98-107) mmol/L Glucose 109 H (74-99) mg/dL AST 207 H (17-59) U/L ALT 448 H (21-72) U/L Total Creatine Kinase (55-170) U/L Troponin I (0.000-0.034) ng/mL Total Protein 5.8 L (6.3-8.2) g/dL Albumin 3.3 L (3.5-5.0) g/dL Urine Protein 1+ H (Negative) Hyaline Casts 20 H (0-2) /lpf Urine Mucus Rare H (None) /hpf Urine Opiates Screen (NotDetected) Ur Amphetamines Screen (NotDetected) U Methamphetamines Scrn (NotDetected) U Marijuana (THC) Screen (NotDetected) 07/03/17 07/03/17 07/03/17 Range/Units 22:01 22:01 22:01 WBC (3.8-10.6) k/uL Neutrophils # (1.3-7.7) k/uL PT 12.8 H (9.0-12.0) sec INR 1.3 H (<1.2) APTT (22.0-30.0) sec D-Dimer (<0.60) mg/L FEU Chloride (98-107) mmol/L Glucose (74-99) mg/dL AST (17-59) U/L ALT (21-72) U/L Total Creatine Kinase 227 H (55-170) U/L Troponin I (0.000-0.034) ng/mL Total Protein (6.3-8.2) g/dL Albumin (3.5-5.0) g/dL Urine Protein (Negative) Hyaline Casts (0-2) /lpf Urine Mucus (None) /hpf Urine Opiates Screen Detected H (NotDetected) Ur Amphetamines Screen Detected H (NotDetected) U Methamphetamines Scrn Detected H (NotDetected) U Marijuana (THC) Screen Detected H (NotDetected) 07/04/17 07/04/17 07/04/17 Range/Units 05:52 05:52 09:11 WBC (3.8-10.6) k/uL Neutrophils # (1.3-7.7) k/uL PT (9.0-12.0) sec INR (<1.2) APTT 93.3 H (22.0-30.0) sec D-Dimer 7.69 H (<0.60) mg/L FEU Chloride (98-107) mmol/L Glucose (74-99) mg/dL AST (17-59) U/L ALT (21-72) U/L Total Creatine Kinase 174 H 174 H (55-170) U/L Troponin I 0.037 H* 0.036 H* (0.000-0.034) ng/mL Total Protein (6.3-8.2) g/dL Albumin (3.5-5.0) g/dL Urine Protein (Negative) Hyaline Casts (0-2) /lpf Urine Mucus (None) /hpf Urine Opiates Screen (NotDetected) Ur Amphetamines Screen (NotDetected) U Methamphetamines Scrn (NotDetected) U Marijuana (THC) Screen (NotDetected) Thrombosis Risk Factor Assmnt - Choose All That Apply Any of the Below Risk Factors Present?: No Other Risk Factors: No Other congenital or acquired thrombophilia - If yes, enter type in comment: No Thrombosis Risk Factor Assessment Level: Very Low Risk
[2017-07-04] MEDS: traMADol 50 MG TAB PO PRN (17:21)
[2017-07-04] MEDS ORDERED: FUROSEMIDE 10 MG/ML 2 ML VIAL IV ONE (19:14)
[2017-07-04] MEDS ORDERED: MORPHINE SULFATE 2 MG/ML SYRINGE IVP ONE (19:15)
[2017-07-05] MEDS: SODIUM CHLORIDE 0.9% 1,000 ML IV SCH ×2 (01:01→23:20)
[2017-07-05] MEDS: FUROSEMIDE 10 MG/ML 2 ML VIAL IV SCH ×3 (01:01→19:32)
[2017-07-05 06:25] LABS: Basophils # (A) 0.1 k/uL (0-0.2); Basophils % (A) 1 %; CH 30.7; CHCM 33.3; Eosinophils # (A) 0.1 k/uL (0-0.7); Eosinophils % (A) 1 %; HDW 2.94; HGB 15.7 gm/dL (13.0-17.5); Luc # (Auto) 0.25; Luc % (Auto) 3; Lymphocytes # (A) 2.3 k/uL (1.0-4.8); Lymphocytes % (A) 23 %; MCH 30.4 pg (25.0-35.0); MCHC 32.8 g/dL (31.0-37.0); MCV 92.7 fL (80.0-100.0); Mean Platelet Volume 8.4; Monocytes # (A) 0.8 k/uL (0-1.0); Monocytes % (A) 8 %; Neutrophils # (A) 6.4 k/uL (1.3-7.7); Neutrophils % (A) 65 %; RBC 5.17 m/uL (4.30-5.90); RDW 14.4 % (11.5-15.5); WBC 9.9 k/uL (3.8-10.6); WBC (Perox) 9.31
[2017-07-05 06:26] LABS: ALT 327 U/L (21-72); AST 110 U/L (17-59); Alkaline Phosphatase 85 U/L (38-126); Anion Gap 9 mmol/L; Blood Urea Nitrogen 14 mg/dL (9-20); Calcium 8.4 mg/dL (8.4-10.2); Carbon Dioxide 26 mmol/L (22-30); Chloride 101 mmol/L (98-107); Glucose 88 mg/dL (74-99); Non-African American GFR(MDRD) >60 (>60 ml/min/1.73 sqM); Potassium 4.1 mmol/L (3.5-5.1); Sodium 136 mmol/L (137-145); Total Bilirubin 1.2 mg/dL (0.2-1.3); Total Protein 5.5 g/dL (6.3-8.2)
--- NOTE | 2017-07-05 08:43 | ECHOF ---
Referral Reason:cardiomegaly MEASUREMENTS -------- HEIGHT: 185.4 cm WEIGHT: 93.9 kg BP: 116/73 RVIDd: 3.9 cm (< 3.3) IVSd: 1.0 cm (0.6 - 1.1) LVIDd: 6.2 cm (3.9 - 5.3) LVPWd: 1.1 cm (0.6 - 1.1) IVSs: 1.2 cm LVIDs: 5.6 cm LVPWs: 1.7 cm LA Diam: 4.5 cm (2.7 - 3.8) LAESV Index (A-L): 41.31 ml/m Ao Diam: 3.2 cm (2.0 - 3.7) AV Cusp: 2.4 cm (1.5 - 2.6) MV EXCURSION: 20.130 mm (> 18.000) MV EF SLOPE: 137 mm/s (70 - 150) EPSS: 2.3 cm MV E Elias: 0.97 m/s MV DecT: 65 ms MV A Elias: 0.27 m/s MV E/A Ratio: 3.57 RAP: 15.00 mmHg RVSP: 45.44 mmHg FINDINGS -------- Resting tachycardia (HR>100bpm). This was a technically excellent study. The left ventricle is mildly dilated. Left ventricular wall thickness is normal. Overall left ventricular systolic function is severely impaired with, an EF between 20 - 25 %. The right ventricle is moderately enlarged. LA is severely dilated >40 ml/m2 The right atrium is normal in size. The aortic valve is trileaflet and appears structurally normal. Mild mitral regurgitation is present. Mild tricuspid regurgitation present. Right ventricular systolic pressure is normal at < 35 mmHg. The right ventricular systolic pressure, as measured by Doppler, is 45.44mmHg. Trace/mild (physiologic) pulmonic regurgitation. The aortic root size is normal. The inferior vena cava is dilated with poor inspiratory collapse which is consistent with estimated right atrial pressure of 15 mmHg. There is a small, generalized pericardial effusion present. CONCLUSIONS -------- 1. Resting tachycardia (HR>100bpm). 2. Mild mitral regurgitation is present. 3. Mild tricuspid regurgitation present. 4. Right ventricular systolic pressure is normal at < 35 mmHg. 5. The right ventricular systolic pressure, as measured by Doppler, is 45.44mmHg. 6. Trace/mild (physiologic) pulmonic regurgitation. 7. The aortic root size is normal. 8. The inferior vena cava is dilated with poor inspiratory collapse which is consistent with estimated right atrial pressure of 15 mmHg. 9. There is a small, generalized pericardial effusion present. 10. This was a technically excellent study. 11. The left ventricle is mildly dilated. 12. Left ventricular wall thickness is normal. 13. Overall left ventricular systolic function is severely impaired with, an EF between 20 - 25 %. 14. The right ventricle is moderately enlarged. 15. LA is severely dilated >40 ml/m2 16. The right atrium is normal in size. 17. The aortic valve is trileaflet and appears structurally normal. BUTTER PRINTER: Elaine Mensah RDCS
[2017-07-05] MEDS: HEPARIN SODIUM,PORCINE 5,000 UNIT/ML 1 ML VIAL SQ SCH (09:58)
[2017-07-05] MEDS: PANTOPRAZOLE 40 MG TABLET PO SCH (09:58)
[2017-07-05] MEDS: LISINOPRIL 5 MG TAB PO SCH (09:58)
[2017-07-05] MEDS: METOPROLOL SUCCINATE (ER) 25 MG TAB.ER.24H PO SCH (09:58)
[2017-07-05] MEDS: traMADol 50 MG TAB PO PRN ×2 (10:30→17:45)
[2017-07-05 13:07] VITALS: RESP 16
--- NOTE | 2017-07-05 14:26 | P.PN ---
Subjective Principal diagnosis: Congestive heart failure This is a 26-year-old gentleman with history of nicotine dependence, marijuana use, use of ecstasy, EtOH abuse, who presented to the hospital with symptoms of generally not feeling well with associated shortness of breath. His initial chest x-ray on admission revealed bilateral pleural effusions with associated cardiomegaly. EKG reveals a sinus tachycardia. Patient did have a VQ scan as well as venous duplex which were negative for pulmonary embolism. He also had an echocardiogram with Doppler study performed which revealed an ejection fraction of 20-25%. He was started on IV Lasix and has been diuresing well overall. He is also on lisinopril, metoprolol tartrate, and a nicotine patch. Blood pressure today 112/70 heart rate in the 90s to low 100s , respirations 16 febrile. WBC 9.9, hemoglobin 15.7, platelet count 202. The 136 , BUN 14, creatinine 1.1. Troponins 0.034, 0.037, 0.036. BNP level 11,200. Weight today is down to 85 kg, down 2-1/2 kg from yesterday. I did have a long discussion with the patient today regarding the importance of EtOH and drug use cessation. We will continue IV Lasix for 24 hours. Check lytes BUN and creatinine in the morning. Objective - Vital Signs Vital signs: Vital Signs Temp 97.8 F 07/05/17 12:00 Pulse 110 H 07/05/17 12:00 Resp 16 07/05/17 12:00 BP 99/65 07/05/17 12:00 Pulse Ox 97 07/05/17 12:00 Intake & Output 07/04/17 07/05/17 07/05/17 18:59 06:59 18:59 Intake Total 1255.757 580 Output Total 2375 1000 480 Balance -1119.243 -1000 100 Weight 85.7 kg Intake: Intake, IV Titration 435.757 Amount Heparin Sodium,Porcine/ 215.757 D5w Pmx 25,000 unit In Dextrose/Water 1 500ml. bag @ 18 UNITS/KG/HR 33.8 mls/hr IV .[id number] [facility] Rx#:[id number] Sodium Chloride 0.9% 1, 220 000 ml @ 20 mls/hr IV . Q24H [facility] Rx#:[id number] Oral 820 580 Output: Urine 2375 1000 480 Other: Voiding Method Urinal Urinal - Exam PHYSICAL EXAMINATION: HEENT: Head is atraumatic, normocephalic. Pupils equal, round. Neck is supple. There is no elevated jugular venous pressure. HEART EXAMINATION: Heart S1, S2 normal. No murmur or gallop heard. CHEST EXAMINATION: Lungs reveal fine rales to bilateral bases. No chest wall tenderness is noted on palpation or with deep breathing. ABDOMEN: Soft, nontender. Bowel sounds are heard. No organomegaly noted. EXTREMITIES: 2+ peripheral pulses with no evidence of peripheral edema and no calf tenderness noted. NEUROLOGIC patient is awake, alert and oriented -3. . - Labs CBC & Chem 7: 07/05/17 05:30 07/05/17 05:30 Labs: Abnormal Lab Results - Last 24 Hours (Table) 07/05/17 Range/Units 05:30 Sodium 136 L (137-145) mmol/L AST 110 H (17-59) U/L ALT 327 H (21-72) U/L Total Protein 5.5 L (6.3-8.2) g/dL Albumin 3.2 L (3.5-5.0) g/dL Microbiology - Last 24 Hours (Table) 07/03/17 22:01 Blood Culture - Preliminary Blood No Growth after 24 hours Assessment and Plan (1) Systolic CHF, acute on chronic Status: Acute (2) Cardiomyopathy Status: Acute (3) Nicotine dependence Status: Acute (4) ETOH abuse Status: Acute (5) Methamphetamine use Status: Acute (6) Methamphetamine use Status: Acute Plan: From cardiology's perspective, we'll recommend to continue current dose of IV Lasix. We will also add Aldactone to the patient's medication regime. Further recommendations to follow. DNP note has been reviewed, I agree with a documented findings and plan of care. Patient was seen and examined.
[2017-07-05] MEDS: LORazepam 0.5 MG TAB PO PRN (15:37)
[2017-07-05] MEDS: NICOTINE 21MG/24HR PATCH TRANSDERM SCH (15:38)
--- NOTE | 2017-07-05 17:35 | P.PN ---
Subjective his is a 26-year-old gentleman who was recently admitted to the hospital for chronic right upper quadrant pain underwent a cholecystectomy. Patient apparently has had issues with alcohol overuse with liver cirrhosis area patient was discharged, came back in to the hospital with complaints of dyspnea. In the emergency room patient was noted to have bilateral pleural effusion patient underwent a VQ scan which did not show any restriction. Underwent a computed tomography scan of the abdomen showed changes with some free air which is also consistent with recent surgery. Patient main complaint was dyspnea did not have any chest pain headaches blurry vision nausea vomiting diarrhea Patient apparently has had significant amount of alcohol use in the past. The EKG on the previous admission did not reveal any abnormalities Patient was given a dose of Lasix and has improved his symptoms significantly at the time of my evaluation patient is currently on room air is able to lay flat states that he did have some trace edema a day prior however it significantly improved Also complains of family history with early cardiac disease and in his grandfather and his uncle at age of 50 Review of systems a 14 point review of system was done nonpertinent was mention above Exam Gen. appearance alert oriented 3 does not appear to be in distress Neck is supple no JVD PERRLA Heart S1-S2 heard no murmurs appreciated S3 is not noted Abdomen is soft and appropriately tender to palpation previous trochars sites are noted Lower x-ray is no edema noted Neuro no focal motor or sensory deficits noted Assessment and plan #1 acute exacerbation of heart or likely systolic concern for alcoholic cardiomyopathy? #2 alcohol overuse #3 recent cholecystectomy #4 ongoing tobacco use graft #5 transaminitis due to alcohol overuse #6 polysubstance use Plan Aldactone was also added Continue monitoring labs We'll need a cardiac catheterization to evaluate and rule out ischemic disease prior to it diagnosis of cardio myopathy secondary to alcohol overuse Objective - Vital Signs Vital signs: Vital Signs Temp 97.8 F 07/05/17 12:00 Pulse 110 H 07/05/17 12:00 Resp 16 07/05/17 12:00 BP 99/65 07/05/17 12:00 Pulse Ox 97 07/05/17 12:00 Intake & Output 07/04/17 07/05/17 07/05/17 18:59 06:59 18:59 Intake Total 1255.757 580 Output Total 2375 1000 480 Balance -1119.243 -1000 100 Weight 85.7 kg Intake: Intake, IV Titration 435.757 Amount Heparin Sodium,Porcine/ 215.757 D5w Pmx 25,000 unit In Dextrose/Water 1 500ml. bag @ 18 UNITS/KG/HR 33.8 mls/hr IV .[id number] [facility] Rx#:[id number] Sodium Chloride 0.9% 1, 220 000 ml @ 20 mls/hr IV . Q24H [facility] Rx#:[id number] Oral 820 580 Output: Urine 2375 1000 480 Other: Voiding Method Urinal Urinal - Labs CBC & Chem 7: 07/05/17 05:30 07/05/17 05:30 Labs: Abnormal Lab Results - Last 24 Hours (Table) 07/05/17 Range/Units 05:30 Sodium 136 L (137-145) mmol/L AST 110 H (17-59) U/L ALT 327 H (21-72) U/L Total Protein 5.5 L (6.3-8.2) g/dL Albumin 3.2 L (3.5-5.0) g/dL Microbiology - Last 24 Hours (Table) 07/03/17 22:01 Blood Culture - Preliminary Blood No Growth after 24 hours
[2017-07-05] MEDS: FUROSEMIDE 20 MG TAB PO SCH ×2 (17:41→21:04)
[2017-07-05] MEDS ORDERED: ONDANSETRON 4 MG/2 ML VIAL IVP PRN (22:36)
[2017-07-06 06:36] LABS: Basophils # (A) 0.1 k/uL (0-0.2); Basophils % (A) 1 %; CH 30.3; CHCM 32.4; Eosinophils # (A) 0.1 k/uL (0-0.7); Eosinophils % (A) 2 %; HCT 47.7 % (39.0-53.0); HDW 2.84; HGB 15.2 gm/dL (13.0-17.5); Luc # (Auto) 0.22; Luc % (Auto) 3; Lymphocytes # (A) 1.9 k/uL (1.0-4.8); Lymphocytes % (A) 24 %; MCH 30.1 pg (25.0-35.0); MCV 94.2 fL (80.0-100.0); Mean Platelet Volume 8.2; Monocytes # (A) 0.6 k/uL (0-1.0); Monocytes % (A) 7 %; Neutrophils # (A) 5.3 k/uL (1.3-7.7); Neutrophils % (A) 65 %; RBC 5.06 m/uL (4.30-5.90); RDW 14.3 % (11.5-15.5); WBC 8.1 k/uL (3.8-10.6)
[2017-07-06] MEDS: LISINOPRIL 5 MG TAB PO SCH (08:02)
[2017-07-06] MEDS: FUROSEMIDE 20 MG TAB PO SCH ×2 (08:02→16:04)
[2017-07-06] MEDS: HEPARIN SODIUM,PORCINE 5,000 UNIT/ML 1 ML VIAL SQ SCH (08:02)
[2017-07-06] MEDS: LORazepam 0.5 MG TAB PO PRN (08:02)
[2017-07-06] MEDS: METOPROLOL SUCCINATE (ER) 25 MG TAB.ER.24H PO SCH (08:02)
[2017-07-06] MEDS: PANTOPRAZOLE 40 MG TABLET PO SCH (08:03)
[2017-07-06] MEDS: NICOTINE 21MG/24HR PATCH TRANSDERM SCH (08:03)
[2017-07-06 08:04] LABS: ALT 244 U/L (21-72); AST 73 U/L (17-59); Alkaline Phosphatase 85 U/L (38-126); Anion Gap 8 mmol/L; Blood Urea Nitrogen 20 mg/dL (9-20); Calcium 8.5 mg/dL (8.4-10.2); Carbon Dioxide 25 mmol/L (22-30); Chloride 102 mmol/L (98-107); Glucose 78 mg/dL (74-99); Non-African American GFR(MDRD) >60 (>60 ml/min/1.73 sqM); Potassium 4.1 mmol/L (3.5-5.1); Sodium 135 mmol/L (137-145); Total Bilirubin 0.9 mg/dL (0.2-1.3); Total Protein 5.3 g/dL (6.3-8.2)
[2017-07-06 08:29] VITALS: TEMP 97.3
[2017-07-06] MEDS ORDERED: ATORVASTATIN 80 MG TAB PO STA (08:31)
[2017-07-06] MEDS ORDERED: ASPIRIN 325 MG TAB PO STA (09:07)
[2017-07-06] MEDS ORDERED: MIDAZOLAM 2 MG/2 ML VIAL IVP ONE (11:25)
[2017-07-06] MEDS ORDERED: fentaNYL (PF) 50 MCG/ML 2 ML AMP IV ONE (11:25)
[2017-07-06] MEDS ORDERED: SODIUM CHLORIDE 0.9% 1,000 ML IV ONE (11:26)
[2017-07-06] MEDS ORDERED: LIDOCAINE 2% INJ 20 MG/ML SQ ONE (11:29)
[2017-07-06] MEDS ORDERED: IOHEXOL 350 MG/ML 125ML BOTTLE INJ ONE (11:39)
[2017-07-06] MEDS ORDERED: FUROSEMIDE 10 MG/ML 4 ML VIAL IVP ONE (11:41)
--- NOTE | 2017-07-06 11:51 | P.OP ---
Date of Procedure: 07/06/17 Preoperative Diagnosis: dilated cardiomyopathy apathy with new onset congestive heart failure Postoperative Diagnosis: Procedure(s) Performed: Implants: Anesthesia: MAC (15 minutes) Indications for Procedure: Cardiomyopathy with congestive heart failure Operative Findings: Referring Physician: Indication: Cardiomyopathy Procedure Note: After obtaining informed consent left heart catheterization and coronary angiogram were performed via the right femoral artery using standard Carin catheters. Patient tolerated the procedure well without any obvious immediate complications. A femoral angiogram was obtained and Angio-Seal was deployed for hemostasis. Patient received conscious sedation total sedation time was 15 minutes Findings: Hemodynamics: Left ventricular end-diastolic pressure is 30 mm Left Ventriculogram: Not performed Angiographic Data:] #1 Left Main Coronary Artery: Normal size vessel and is free of stenosis #2 Left Anterior Descending Coronary Artery: Normal vessel and diagonal branches are free of stenosis as is the LAD #3 Circumflex Coronary Artery: Nondominant vessel and is free of stenosis #4 Right Coronary Artery: Large dominant vessel and is free of stenosis Conclusions: #1: Normal coronary arteries #2: Left ventricular end-diastolic pressure is elevated Plan: Maximize medical therapy and referral dictation the care center for consideration for cardiac transplant and device therapies Description of Procedure:
--- NOTE | 2017-07-06 18:48 | P.DS ---
Providers Date of admission: 07/04/17 00:32 Attending physician: Kory Saucedo MD Consults: 07/04/17 00:22 Consult Physician Routine Consulting Provider: Chino Burgess Consult Reason/Comments: cardiomegaly, fluid overload Do you want consulting provider notified?: Yes Primary care physician: Cristobal Borrero [facility] Course: 26-year-old gentleman who was recently admitted to the hospital for chronic right upper quadrant pain underwent a cholecystectomy. Patient apparently has had issues with alcohol overuse with liver cirrhosis area patient was discharged, came back in to the hospital with complaints of dyspnea. In the emergency room patient was noted to have bilateral pleural effusion patient underwent a VQ scan which did not show any restriction. Underwent a computed tomography scan of the abdomen showed changes with some free air which is also consistent with recent surgery. Patient main complaint was dyspnea did not have any chest pain headaches blurry vision nausea vomiting diarrhea Patient apparently has had significant amount of alcohol use in the past. The EKG on the previous admission did not reveal any abnormalities Patient was given a dose of Lasix and has improved his symptoms significantly at the time of my evaluation patient is currently on room air is able to lay flat states that he did have some trace edema a day prior however it significantly improved Also complains of family history with early cardiac disease and in his grandfather and his uncle at age of 50 Review of systems a 14 point review of system was done nonpertinent was mention above Exam Gen. appearance alert oriented 3 does not appear to be in distress Neck is supple no JVD PERRLA Heart S1-S2 heard no murmurs appreciated S3 is not noted Abdomen is soft and appropriately tender to palpation previous trochars sites are noted Lower x-ray is no edema noted Neuro no focal motor or sensory deficits noted Assessment and plan #1 acute exacerbation of heart or likely systolic concern for alcoholic cardiomyopathy. Underwent a coronary angiogram without any significant disease dilated cardiomyopathy noted . #2 alcohol overuse #3 recent cholecystectomy #4 ongoing tobacco use graft #5 transaminitis due to alcohol overuse #6 polysubstance use Plan Patient is discharged on KENNA inhibitor beta ronaldo and Lasix 20 g by mouth twice a day Patient is to follow-up with cardiology in 1 week. Patient apparently is going to move to another area patient should follow-up with a higher level of care for cardiac transplant and possibility of AICD placement which would likely need MRI of the heart. I did discuss however cessation of substance use is highly important prior to any further workup as he would not be a candidate for transplant if patient continues to abuse alcohol and other illicit substances. Patient Condition at Discharge: Stable Plan - Discharge Summary New Discharge Prescriptions: New Furosemide [Lasix] 20 mg PO BID #60 tab Lisinopril [Zestril] 5 mg PO DAILY #30 tab Metoprolol Succinate (ER) [Toprol XL] 25 mg PO DAILY #30 tab Continue Omeprazole [PriLOSEC] 40 mg PO DAILY #14 capsule. Pantoprazole [Protonix] 40 mg PO DAILY #30 tab Discontinued Ibuprofen 600 mg PO AC-TID #30 tablet Discharge Medication List Omeprazole [PriLOSEC] 40 mg PO DAILY #14 capsule. 06/27/17 [Rx] Pantoprazole [Protonix] 40 mg PO DAILY #30 tab 07/01/17 [Rx] Furosemide [Lasix] 20 mg PO BID #60 tab 07/06/17 [Rx] Lisinopril [Zestril] 5 mg PO DAILY #30 tab 07/06/17 [Rx] Metoprolol Succinate (ER) [Toprol XL] 25 mg PO DAILY #30 tab 07/06/17 [Rx] Follow up Appointment(s)/Referral(s): Marlon Jain MD [Primary Care Provider] - 1-2 days Alexey Vera MD [STAFF PHYSICIAN] - 1 Week (follow up on heart cath) Patient Instructions/Handouts: *Sur[facility] - After Heart Catheterization - [employer] Instructions, Heart Failure (DC), Abuse of Alcohol (DC), Methamphetamine Abuse (DC) Discharge Disposition: HOME SELF-CARE
[2017-07-06 19:10] VITALS: BP 109/68; PULSE 87
== END 2017-07-06 20:30 | disposition home or self-care (01) | DRG 287 ==
LOC: EC 21:35 → 6SEL 07-04 00:32
PROVIDERS: ADMIT Internal Medicine; ATTEND Internal Medicine
PROC: B2111ZZ Fluoroscopy of Multiple Coronary Arteries using Low Osmolar Contrast (ICD-10-PCS; 2017-07-06)
PROC: B2151ZZ Fluoroscopy of Left Heart using Low Osmolar Contrast (ICD-10-PCS; 2017-07-06)
PROC: 4A023N7 Measurement of Cardiac Sampling and Pressure, Left Heart, Percutaneous Approach (ICD-10-PCS; principal; 2017-07-06 10:57)
DX: I50.23 Acute on chronic systolic (congestive) heart failure (principal); I42.0 Dilated cardiomyopathy; K74.60 Unspecified cirrhosis of liver; I42.6 Alcoholic cardiomyopathy; R74.0 Nonspecific elevation of levels of transaminase and lactic acid dehydrogenase [LDH]; F15.90 Other stimulant use, unspecified, uncomplicated; F10.10 Alcohol abuse, uncomplicated; R74.8 Abnormal levels of other serum enzymes; R00.0 Tachycardia, unspecified; G89.29 Other chronic pain; F19.90 Other psychoactive substance use, unspecified, uncomplicated; F12.10 Cannabis abuse, uncomplicated; R14.0 Abdominal distension (gaseous); F17.200 Nicotine dependence, unspecified, uncomplicated; Z79.1 Long term (current) use of non-steroidal anti-inflammatories (NSAID); Z90.49 Acquired absence of other specified parts of digestive tract; Z98.890 Other specified postprocedural states; Z82.49 Family history of ischemic heart disease and other diseases of the circulatory system; Z71.6 Tobacco abuse counseling; Z71.41 Alcohol abuse counseling and surveillance of alcoholic; Z82.0 Family history of epilepsy and other diseases of the nervous system; Z79.899 Other long term (current) drug therapy; Z71.51 Drug abuse counseling and surveillance of drug abuser; Z82.5 Family history of asthma and other chronic lower respiratory diseases; Z83.79 Family history of other diseases of the digestive system; Z87.01 Personal history of pneumonia (recurrent); Z86.69 Personal history of other diseases of the nervous system and sense organs
CPT/HCPCS: 36415; 71020; 74020; 74177; 78582; 80053; 80306; 81001; 82550; 82553; 83880; 84484; 85025; 85379; 85610; 85730; 87040; 93005; 93306; 93458; 93970; 96361; 96365; 96375; 96376; 99285

== ENCOUNTER 2021-09-16 13:55 | Emergency (ER) | payer OTHER ==
[2021-09-16] MEDS ORDERED: SODIUM CHLORIDE 0.9% 1,000 ML IV STA (14:03)
[2021-09-16] MEDS ORDERED: BAMLANIVIMAB (EUA) 700 MG, ETESEVIMAB (EUA) 1,400 MG in SODIUM CHLORIDE 0.9% 50 ML IVPB ONE (15:00)
[2021-09-16] MEDS ORDERED: SODIUM CHLORIDE 0.9% 50 ML IVPB ONE (15:00)
--- NOTE | 2021-09-16 16:20 | ED ---
Recheck HPI - General Chief Complaint: Recheck/Abnormal Lab/Rx Stated Complaint: COVID+,Needs BAM Time Seen by Provider: 09/16/21 14:02 Source: patient, RN notes reviewed Mode of arrival: ambulatory Limitations: no limitations - History of Present Illness Initial Comments: Patient is a 30-year-old male presenting to the emergency Department requesting covid antibiotics. Patient tested positive for Covid yesterday. He has been having a cough, congestion, diarrhea over the past 5 days. He denies any chest pain, no shortness of breath. He denies any fevers but states he has felt a little warm and feels like his heart rate is elevated. He did not take any Tylenol or Motrin however he has taken Mucinex. He denies any nausea or vomiting, no abdominal pain. Denies history of asthma or COPD. He denies any further complaints. - Related Data Previous Rx's Medication Instructions Recorded Omeprazole [PriLOSEC] 40 mg PO DAILY #14 capsule. 06/27/17 Furosemide [Lasix] 20 mg PO BID #60 tab 07/06/17 Metoprolol Succinate (ER) [Toprol 25 mg PO DAILY #30 tab 07/06/17 XL] lisinopriL [Zestril] 5 mg PO DAILY #30 tab 07/06/17 Allergies Allergy/AdvReac Type Severity Reaction Status Date / Time No Known Allergies Allergy Verified 09/16/21 13:57 Review of Systems ROS Statement: Those systems with pertinent positive or pertinent negative responses have been documented in the HPI. ROS Other: All systems not noted in ROS Statement are negative. Past Medical History Past Medical History: Heart Failure Additional Past Medical History / Comment(s): pneumonia History of Any Multi-Drug Resistant Organisms: None Reported Past Surgical History: Cholecystectomy, Ear Surgery, Pacemaker Additional Past Surgical History / Comment(s): tubes in ears as a child Past Anesthesia/Blood Transfusion Reactions: No Reported Reaction Past Psychological History: Anxiety, Depression Smoking Status: Current every day smoker Past Alcohol Use History: Occasional Past Drug Use History: Marijuana - Past Family History Father Family Medical History: Congestive Heart Failure (CHF), Musculoskeletal Disorder Additional Family Medical History / Comment(s): Multiple Sclerosis, Chrons disease, emphesema General Exam - General Exam Comments Initial Comments: GENERAL: Patient is well-developed and well-nourished. Patient is nontoxic and in no acute distress. HEAD: Atraumatic, normocephalic. EYES: Pupils equal round and reactive to light, extraocular movements intact, sclera anicteric, conjunctiva are normal. Eyelids were unremarkable. ENT: Oropharynx clear without exudates. Moist mucous membranes. NECK: Normal range of motion, supple without lymphadenopathy or JVD. LUNGS: Unlabored respirations. Breath sounds clear to auscultation bilaterally and equal. No wheezes rales or rhonchi. HEART: Regular rate and rhythm without murmurs, rubs or gallops. ABDOMEN: Soft, nontender, normoactive bowel sounds. No guarding, no rebound. No masses appreciated. MUSCULOSKELETAL: Normal extremities with adequate strength and normal range of motion, no pitting or edema. No clubbing or cyanosis. NEUROLOGICAL: Patient is alert and oriented x 3. SKIN: Warm, Dry, normal turgor, no rashes or lesions noted. Limitations: no limitations Course Vital Signs 09/16/21 13:57 Temperature 97.8 F Pulse Rate 119 H Respiratory 20 Rate Blood Pressure 119/70 O2 Sat by Pulse 94 L Oximetry Medical Decision Making - Medical Decision Making Patient is a 30-year-old male tested positive for covid yesterday, here for monoclonal antibodies. He's been having mild viral type symptoms over the past 5 days. His exam is unremarkable, is afebrile today. Patient received a liter of fluids and the monoclonal antibodies. He had no adverse side effects. I recommended continuing to increase his fluids, Tylenol Motrin for fever or body aches. He can continue with Mucinex as needed for symptoms as well. He is stable for discharge. Disposition Clinical Impression: COVID-19 Disposition: HOME SELF-CARE Condition: Stable Instructions (If sedation given, give patient instructions): Coronavirus Disease 2019 (COVID-19) Additional Instructions: Please return to the Emergency Department if symptoms worsen or any other concerns. Recommend Tylenol and/or Motrin for fever and body aches. Continue to increase your fluid intake. Follow-up with your primary care as needed. Is patient prescribed a controlled substance at d/c from ED?: No Referrals: None,Stated [Primary Care Provider] - 1-2 days Time of Disposition: 16:20
[2021-09-16 16:45] VITALS: BP 145/74; PULSE 90; RESP 18; TEMP 99.4
== END 2021-09-16 16:42 | disposition home or self-care (01) ==
LOC: EC 13:55
DX: U07.1 COVID-19 (principal); F17.200 Nicotine dependence, unspecified, uncomplicated; I50.9 Heart failure, unspecified; Z95.0 Presence of cardiac pacemaker
CPT/HCPCS: 99283; 96365; J3490

== ENCOUNTER 2021-09-17 14:49 | Emergency (ER) | payer OTHER ==
[2021-09-17 15:33] VITALS: RESP 18
[2021-09-17] MEDS ORDERED: ALBUTEROL HFA INHALER INHALATION STA (16:40)
[2021-09-17] MEDS ORDERED: ACETAMINOPHEN TAB 325 MG TAB PO STA (16:40)
[2021-09-17] MEDS ORDERED: SODIUM CHLORIDE 0.9% 1,000 ML IV STA (16:41)
[2021-09-17] MEDS ORDERED: IBUPROFEN 400 MG TAB PO STA (16:41)
--- NOTE | 2021-09-17 16:46 | ED ---
General Adult HPI - General Chief complaint: Recheck/Abnormal Lab/Rx Stated complaint: covid Time Seen by Provider: 09/17/21 16:20 Source: patient, RN notes reviewed Mode of arrival: ambulatory Limitations: no limitations - History of Present Illness Initial comments: Patient is a pleasant 30-year-old male presenting to the emergency department with fatigue and bodyaches. Patient was recently denies post with COVID-19 infection and received monoclonal antibodies history. Patient feels somewhat worse today. Patient took one Tylenol pill and one Advil pill prior to arrival. Patient has fevers chills and myalgias. Patient has decreased appetite. No nausea or vomiting or diarrhea. Patient has mild cough. No dyspnea. Patient does have loss of taste and smell. - Related Data Previous Rx's Medication Instructions Recorded Omeprazole [PriLOSEC] 40 mg PO DAILY #14 capsule. 06/27/17 Furosemide [Lasix] 20 mg PO BID #60 tab 07/06/17 Metoprolol Succinate (ER) [Toprol 25 mg PO DAILY #30 tab 07/06/17 XL] lisinopriL [Zestril] 5 mg PO DAILY #30 tab 07/06/17 Azithromycin [Zithromax Z-pack (6 250 mg PO DIRECTED #6 tab 09/17/21 tabs)] Allergies Allergy/AdvReac Type Severity Reaction Status Date / Time No Known Allergies Allergy Verified 09/17/21 15:33 Review of Systems ROS Statement: Those systems with pertinent positive or pertinent negative responses have been documented in the HPI. ROS Other: All systems not noted in ROS Statement are negative. Constitutional: Reports: fever, chills Eyes: Denies: eye pain ENT: Denies: ear pain Respiratory: Reports: cough. Denies: dyspnea Cardiovascular: Denies: chest pain Endocrine: Reports: fatigue Gastrointestinal: Denies: abdominal pain Genitourinary: Denies: dysuria Musculoskeletal: Denies: arthralgia Skin: Denies: rash Neurological: Denies: weakness Past Medical History Past Medical History: Heart Failure Additional Past Medical History / Comment(s): pneumonia History of Any Multi-Drug Resistant Organisms: None Reported Past Surgical History: Cholecystectomy, Ear Surgery, Pacemaker Additional Past Surgical History / Comment(s): tubes in ears as a child Past Anesthesia/Blood Transfusion Reactions: No Reported Reaction Past Psychological History: Anxiety, Depression Smoking Status: Current every day smoker Past Alcohol Use History: Occasional Past Drug Use History: Marijuana - Past Family History Father Family Medical History: Congestive Heart Failure (CHF), Musculoskeletal Disorder Additional Family Medical History / Comment(s): Multiple Sclerosis, Chrons disease, emphesema General Exam Limitations: no limitations General appearance: alert, in no apparent distress Head exam: Present: normocephalic Eye exam: Present: normal appearance Neck exam: Present: normal inspection Respiratory exam: Present: normal lung sounds bilaterally Cardiovascular Exam: Present: regular rate, normal rhythm GI/Abdominal exam: Present: soft. Absent: tenderness Extremities exam: Present: normal inspection. Absent: pedal edema, calf tenderness Neurological exam: Present: alert Psychiatric exam: Present: normal affect, normal mood Skin exam: Present: normal color Course Vital Signs 09/17/21 15:28 Temperature 102 F H Pulse Rate 100 Respiratory 18 Rate Blood Pressure 115/50 O2 Sat by Pulse 97 Oximetry EKG Findings - EKG Comments: EKG Findings:: Normal sinus rhythm with a rate of 92. HI 158. QRS 86. QT 324. QTC 400. Normal axis. Normal QRS. No acute ST change. Medical Decision Making - Medical Decision Making Patient reevaluated and resting comfortably in bed. Patient is feeling better. Patient is updated on results and need for follow-up. Patient is comfortable with discharge home at this time. Patient will be started for her antibiotics for left lung infiltrate with possibility of dual infection. Patient is advised to return for worsening symptoms. - Lab Data Result diagrams: 09/17/21 17:10 09/17/21 17:10 Lab Results 09/17/21 09/17/21 09/17/21 Range/Units 17:10 17:10 17:10 WBC 11.8 H (3.8-10.6) k/uL RBC 5.29 (4.30-5.90) m/uL Hgb 16.2 (13.0-17.5) gm/dL Hct 48.7 (39.0-53.0) % MCV 92.0 (80.0-100.0) fL MCH 30.6 (25.0-35.0) pg MCHC 33.3 (31.0-37.0) g/dL RDW 12.7 (11.5-15.5) % Plt Count 168 (150-450) k/uL MPV 8.5 Neutrophils % 88 % Lymphocytes % 6 % Monocytes % 4 % Eosinophils % 1 % Basophils % 1 % Neutrophils # 10.4 H (1.3-7.7) k/uL Lymphocytes # 0.7 L (1.0-4.8) k/uL Monocytes # 0.5 (0-1.0) k/uL Eosinophils # 0.1 (0-0.7) k/uL Basophils # 0.1 (0-0.2) k/uL PT (9.0-12.0) sec INR (<1.2) APTT (22.0-30.0) sec Sodium 137 (137-145) mmol/L Potassium 4.2 (3.5-5.1) mmol/L Chloride 103 (98-107) mmol/L Carbon Dioxide 23 (22-30) mmol/L Anion Gap 11 mmol/L BUN 12 (9-20) mg/dL Creatinine 1.04 (0.66-1.25) mg/dL Est GFR (CKD-EPI)AfAm >90 (>60 ml/min/1.73 sqM) Est GFR (CKD-EPI)NonAf >90 (>60 ml/min/1.73 sqM) Glucose 107 H (74-99) mg/dL Plasma Lactic Acid Karthik 1.5 (0.7-2.0) mmol/L Calcium 8.3 L (8.4-10.2) mg/dL Magnesium 1.9 (1.6-2.3) mg/dL Total Bilirubin 0.7 (0.2-1.3) mg/dL AST 49 (17-59) U/L ALT 56 H (4-49) U/L Alkaline Phosphatase 102 (38-126) U/L Lactate Dehydrogenase 941 H (313-618) U/L C-Reactive Protein 20.5 H (<1.0) mg/dL Total Protein 7.1 (6.3-8.2) g/dL Albumin 4.1 (3.5-5.0) g/dL 09/17/21 Range/Units 18:00 WBC (3.8-10.6) k/uL RBC (4.30-5.90) m/uL Hgb (13.0-17.5) gm/dL Hct (39.0-53.0) % MCV (80.0-100.0) fL MCH (25.0-35.0) pg MCHC (31.0-37.0) g/dL RDW (11.5-15.5) % Plt Count (150-450) k/uL MPV Neutrophils % % Lymphocytes % % Monocytes % % Eosinophils % % Basophils % % Neutrophils # (1.3-7.7) k/uL Lymphocytes # (1.0-4.8) k/uL Monocytes # (0-1.0) k/uL Eosinophils # (0-0.7) k/uL Basophils # (0-0.2) k/uL PT 11.0 (9.0-12.0) sec INR 1.0 (<1.2) APTT 28.8 (22.0-30.0) sec Sodium (137-145) mmol/L Potassium (3.5-5.1) mmol/L Chloride (98-107) mmol/L Carbon Dioxide (22-30) mmol/L Anion Gap mmol/L BUN (9-20) mg/dL Creatinine (0.66-1.25) mg/dL Est GFR (CKD-EPI)AfAm (>60 ml/min/1.73 sqM) Est GFR (CKD-EPI)NonAf (>60 ml/min/1.73 sqM) Glucose (74-99) mg/dL Plasma Lactic Acid Karthik (0.7-2.0) mmol/L Calcium (8.4-10.2) mg/dL Magnesium (1.6-2.3) mg/dL Total Bilirubin (0.2-1.3) mg/dL AST (17-59) U/L ALT (4-49) U/L Alkaline Phosphatase (38-126) U/L Lactate Dehydrogenase (313-618) U/L C-Reactive Protein (<1.0) mg/dL Total Protein (6.3-8.2) g/dL Albumin (3.5-5.0) g/dL - Radiology Data Radiology results: image reviewed (Chest x-ray shows left midlung infiltrate.) Disposition Clinical Impression: COVID-19 Disposition: HOME SELF-CARE Instructions (If sedation given, give patient instructions): Community Acquired Pneumonia (ED), Coronavirus Disease 2019 (COVID-19) Additional Instructions: Prescriptions for anabiotic has been sent to pharmacy. Please follow-up with primary care physician in the next day or 2 for recheck. Return for difficulty breathing, not tolerating fluids, uncontrolled fevers, worsening or change in symptoms or any other concerns. [id number] Tylenol or Motrin as needed for fever. [id number] vitamin C, vitamin D, and zinc. Melatonin at bedtime may help. Prescriptions: Azithromycin [Zithromax Z-pack (6 tabs)] 250 mg PO DIRECTED #6 tab Is patient prescribed a controlled substance at d/c from ED?: No Referrals: Michael Hilliard MD [STAFF PHYSICIAN] - 1-2 days Time of Disposition: 18:36
[2021-09-17 17:23] LABS: Basophils # (A) 0.1 k/uL (0-0.2); Basophils % (A) 1 %; Eosinophils # (A) 0.1 k/uL (0-0.7); Eosinophils % (A) 1 %; HCT 48.7 % (39.0-53.0); HGB 16.2 gm/dL (13.0-17.5); Lymphocytes # (A) 0.7 k/uL (1.0-4.8); Lymphocytes % (A) 6 %; MCH 30.6 pg (25.0-35.0); MCHC 33.3 g/dL (31.0-37.0); Mean Platelet Volume 8.5; Monocytes # (A) 0.5 k/uL (0-1.0); Monocytes % (A) 4 %; Neutrophils # (A) 10.4 k/uL (1.3-7.7); Neutrophils % (A) 88 %; Platelet Count 168 k/uL (150-450); RBC 5.29 m/uL (4.30-5.90); RDW 12.7 % (11.5-15.5); WBC 11.8 k/uL (3.8-10.6)
[2021-09-17 17:36] LABS: ALT 56 U/L (4-49); African American GFR (CKD) >90 (>60 ml/min/1.73 sqM); Albumin 4.1 g/dL (3.5-5.0); Anion Gap 11 mmol/L; Blood Urea Nitrogen 12 mg/dL (9-20); Calcium 8.3 mg/dL (8.4-10.2); Carbon Dioxide 23 mmol/L (22-30); Chloride 103 mmol/L (98-107); Glucose 107 mg/dL (74-99); Non-African American GFR(CKD) >90 (>60 ml/min/1.73 sqM); Sodium 137 mmol/L (137-145); Total Bilirubin 0.7 mg/dL (0.2-1.3); Total Protein 7.1 g/dL (6.3-8.2)
--- NOTE | 2021-09-17 17:46 | XR ---
EXAMINATION TYPE: XR chest 1V portable DATE OF EXAM: 09/17/2021 COMPARISON: 07/03/2017 HISTORY: Pneumonia. Chest pain TECHNIQUE: FINDINGS: There is a 9 cm patch of infiltrate in the left midlung field. Right lung is clear. Heart a ppears normal. There are no hilar masses. There is left axillary pacemaker. There is no pleural effus ion. Bony thorax is intact. IMPRESSION: There is some bony and the left midlung field which is new compared to old exam. There is clearing of the heart failure and pleural fluid compared to old exam.
[2021-09-17 18:15] LABS: C Reactive Protein 20.5 mg/dL (<1.0); Magnesium 1.9 mg/dL (1.6-2.3); Potassium 4.2 mmol/L (3.5-5.1)
[2021-09-17 18:16] LABS: AST 49 U/L (17-59); Alkaline Phosphatase 102 U/L (38-126); LDH 941 U/L (313-618)
[2021-09-17 18:30] LABS: Partial Thromboplastin Time 28.8 sec (22.0-30.0)
[2021-09-17 18:34] VITALS: BP 135/64; PULSE 90; TEMP 98.2
[2021-09-17] MEDS ORDERED: AZITHROMYCIN 500 MG TAB PO STA (18:36)
== END 2021-09-17 18:52 | disposition home or self-care (01) ==
LOC: EC 14:49
DX: U07.1 COVID-19 (principal); F17.200 Nicotine dependence, unspecified, uncomplicated
CPT/HCPCS: 36415; 71045; 80053; 82728; 83605; 83615; 83735; 84145; 85025; 85610; 85730; 86140; 93005; 94640; 99284